=== PATIENT | male | born 1990 | race African-American/Black ===

== ENCOUNTER → 2022-05-13 09:04 | Outpatient (BNVA) | payer OTHER, SELFPAY | PROVIDERS: PCP Family Medicine; Visit Provider Physician Assistant | DX: K92.1 Melena (principal); K64.9 Unspecified hemorrhoids | CPT/HCPCS: 99202 ==

== ENCOUNTER 2022-07-23 09:34 | Outpatient (REF) | payer OTHER, SELFPAY ==
[2022-07-23 11:37] LABS: MANUAL DIFF FLAG NO
[2022-07-23 11:42] LABS: Basophils Percent Auto 0.5 % (0-2); Eosinophils Absolute Auto 0.2 X10*3/uL (0.0-0.4); Eosinophils Percent Auto 4.4 % (0-4); Hematocrit 48.1 % (42.0-52.0); Hemoglobin 15.8 g/dl (14.0-18.0); Imm Gran Abs Auto 0.02 X10*3/uL (0.00-0.03); Imm Gran Pct Auto 0.4 % (0.0-0.4); Lymphocytes Absolute Auto 1.8 X10*3/uL (1.2-4.9); Lymphocytes Percent Auto 32.5 % (20-40); Mean Corpuscular HGB Conc 32.8 g/dl (31.0-36.0); Mean Corpuscular Hemoglobin 27.4 pg (27.0-33.0); Mean Corpuscular Volume 83.4 fL (80.0-98.0); Mean Platelet Volume 9.5 fL (9.4-12.4); Monocytes Absolute Auto 0.5 X10*3/uL (0.1-1.2); Monocytes Percent Auto 8.9 % (2-11); Neutrophils Absolute Auto 2.9 x10*3/uL (2.0-8.3); Neutrophils Percent Auto 53.3 % (45-73); Platelet Count 276 X10*3/uL (160-400); Red Blood Count 5.77 X10*6/uL (4.60-5.80); Red Cell Distribution Width 13.6 % (11.0-16.0); White Blood Count 5.5 X10*3/uL (4.8-10.8)
[2022-07-23 11:47] LABS: Appearance Urine Clear; Color Urine Yellow; Glucose Urine UA >=1000 mg/dL (Negative); Leukocyte Esterase Urine Negative (Negative); Nitrite Urine Negative (Negative); PH 5.5 (5.0-9.0); Specific Gravity - Urine 1.025 (1.005-1.025); UMIC TRIGGER UA YES; Urine Blood Negative (Negative); Urine Ketones Negative (Negative); Urine Protein Negative (Neg-Trace)
[2022-07-23 11:53] LABS: Bacteria Urine None Seen (None Seen); Hyaline Casts Urine 0-2 /LPF (0-2); RBC Urine 0-2 /HPF (0-2); Squamous Epithelial Cell Urine 0-2 /HPF (0-2); WBC Urine 0-5 /HPF (0-5)
[2022-07-23 11:58] LABS: Amphetamine Screen Urine Not Detected (Not Detect); Barbiturates, Urine Not Detected (Not Detect); Benzodiazepines Screen Urine Not Detected (Not Detect); Cannabinoid Screen Urine Not Detected (Not Detect); Cocaine Screen Urine Not Detected (Not Detect); Fentanyl, urine Not Detected (Not Detect); Opiate Screen Urine Not Detected (Not Detect); Phencyclidine Screen Urine Not Detected (Not Detect)
[2022-07-23 12:37] LABS: Alanine Aminotransferase 33 U/L (0-40); Albumin Level 4.4 g/dL (3.5-5.0); Alkaline Phosphatase 105 U/L (39-117); Anion Gap 16 (12-20); Aspartate Amino Transferase 22 U/L (5-37); Bilirubin Total 0.4 mg/dL (0.0-1.0); Blood Urea Nitrogen 16 mg/dL (9-16); Carbon Dioxide 27 mmol/L (22-29); Chloride 103 mmol/L (96-108); Cholesterol 235 mg/dL; Estimated Glomerular Filt Rate > 60; Glucose Fasting 224 mg/dL (60-99); HDL Cholesterol 45 mg/dL; LDL Cholesterol Calculated 145 mg/dl; Potassium 4.9 mmol/L (3.3-5.1); Sodium 141 mmol/L (135-145); Total Protein 7.2 g/dL (6.5-8.0); Triglycerides 228 mg/dL
[2022-07-23 12:42] LABS: Creatinine Urine 142.25 mg/dL; Microalbum/Creatinine Ratio Ur 11.2 ug/mg cr
[2022-07-23 12:57] LABS: TSH reflex Free T4 1.01 uIU/mL (0.32-4.0)
== END 2022-07-23 09:35 | disposition home or self-care (01) ==
LOC: HO.WFDLDS 09:34
PROVIDERS: Visit Provider Family Medicine
DX: Z00.00 Encounter for general adult medical examination without abnormal findings (principal); R41.840 Attention and concentration deficit; I10 Essential (primary) hypertension
CPT/HCPCS: 80053; 80061; 80307; 81001; 82043; 84443; 85025

== ENCOUNTER → 2022-09-26 13:12 | Outpatient (BNVA) | payer OTHER, SELFPAY | PROVIDERS: PCP Family Medicine; Visit Provider Urology | DX: Z30.09 Encounter for other general counseling and advice on contraception (principal); E11.65 Type 2 diabetes mellitus with hyperglycemia; F41.8 Other specified anxiety disorders | CPT/HCPCS: 99202 ==

== ENCOUNTER 2022-10-22 16:01 | Outpatient (AMB) | payer OTHER, SELFPAY ==
--- NOTE | 2022-10-22 16:11 | A.OFFPC_ITS ---
Vital Signs 10/22/22 16:14 Height 5 ft 10 in Weight 249 lb BMI 35.7 BP 116/68 Blood Pressure Location Lt brachial Position Sitting Respiration 15 Pulse 113 H Pulse Source Pulse Oximeter Temp 98.9 F Temp Source Temporal Artery Scan Pulse Oximetry (%) 97 Oxygen Delivery Method Room Air Intake Visit Reasons: Physical exam Intake Note: Patient is here today for a physical and he would like to also have his medication check today as he was scheduled for 2 appointments in the same week. 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 Fairly new diagnosis of diabetes. Had started him on metformin but he states this has been giving him heartburn and has not been able to take this daily. Last A1c 07/29/22 was 7.9%. Pt states he sees his dentist every 6 months. [facility] Medical History ADHD Family History (Updated 10/22/22 @ 16:22 by Sariah Boyer) Mother Depression Social History Housing: House Patient Tobacco Use Status: Current everyday Tobacco user Tobacco use type: Cigarette Cigarettes Per Day: 5 Years Smoked: recently started e-Cigarette/Vaping Use: Never Used Second Hand Smoke Exposure: No service: No Current occupational status: employed Current occupational exposures/hazards: No Cognitive needs: No Hearing needs: No Vision needs: No Questionnaire PHQ-9 Over the last 2 weeks, how often have you been bothered by any of the following problems? 1. Little interest or pleasure in doing things: not at all 2. Feeling down, depressed, or hopeless: not at all 3. Trouble falling or staying asleep, or sleeping too much: several days 4. Feeling tired or having little energy: not at all 5. Poor appetite or overeating: not at all 6. Feeling bad about yourself - or that you are a failure or have let yourself or your family down: not at all 7. Trouble concentrating on things, such as reading the newspaper or watching television: several days 8. Moving or speaking so slowly that other people could have noticed. Or the opposite - being so fidgety or restless that you have been moving around a lot more than usual: not at all 9. Thoughts that you would be better off or of hurting yourself in some way: not at all Total score: 2 Depression Screening Interpretation: Negative 05807 - PHQ-9 Billing: Yes Source: Developed by Drs. Mayo Ivey, Mayd Crook, Naun Salas and colleagues, with an educational dyana from [employer]. Thrive Questionnaire Date Thrive assessed: 03/19/22 AYUSH-7 AMB Questionnaire AYUSH-7 Date AYUSH - 7 assessed: 10/22/22 Feeling nervous, anxious, or on edge: 1 = Several days Not being able to stop or control worryin = Not at all Worrying too much about different things: 1 = Several days Trouble relaxin = Not at all Being so restless that it is hard to sit still: 0 = Not at all Becoming easily annoyed or irritable: 0 = Not at all Feeling afraid as if something awful might happen: 0 = Not at all Total AYSUH-7 score (0-4 normal; 5-9 mild; 10-14 moderate; 15-21 severe): 2 Source: Developed by Drs. Mayo Ivey, Mady Crook, Naun Salas and colleagues, with an educational dyana from [employer]. AYUSH-7 Assessment Billing AYUSH-7 Assessment Tool: AYUSH-7 Assessment 56459 Review of Systems Const Denies chills, Denies fatigue, Denies fever(s), Denies headache(s) and Denies weakness Eyes Denies change in vision ENT Denies dizziness, Denies headache(s), Denies hearing loss, Denies nasal congestion, Denies sinus pain, Denies sinus pressure and Denies sore throat Card Denies chest pain, Denies lightheadedness, Denies dyspnea and Denies other (palpitations) Resp Denies cough, Denies dyspnea and Denies wheezing GI Denies abdominal pain, Denies melena, Denies hematochezia, Denies change in bowel habits, Denies dyspepsia and Denies nausea Denies hematuria and Denies dysuria Musc Denies abnormal gait, Denies myalgias, Denies arthralgias, Denies numbness and Denies tingling Skin/Breast Denies rash, Denies unusual bruising and Denies wounds Neuro Denies abnormal gait, Denies dizziness, Denies headache(s), Denies memory loss, Denies numbness, Denies Sensory deficit (Neuro), Denies tingling and Denies weakness Psych Denies anxiety, Denies depression and Denies memory loss Endo Denies cold intolerance, Denies fatigue, Denies heat intolerance, Denies polydipsia and Denies polyuria Grady/Lymph Denies easy bleeding and Denies easy bruising Aller/Immun Denies wheezing Physical exam (Primary Care) Vital Signs: Last Vital Signs Temp 98.9 F 10/22/22 16:14 Pulse 113 H 10/22/22 16:14 Resp 15 10/22/22 16:14 BP 116/68 10/22/22 16:14 Pulse Ox 97 10/22/22 16:14 Oxygen Delivery Method Room Air 10/22/22 16:14 BMI result Body Mass Index 35.7 Tobacco/Smoking Status: Tobacco use Status Tobacco use date assessed 10/22/22 10/22/22 16:23 Patient Tobacco Use Status Current everyday Tobacco 10/22/22 16:23 Tobacco use type Cigarette 10/22/22 16:23 e-Cigarette/Vaping Use Never Used 10/22/22 16:13 PHQ-9: PHQ-9 Score PHQ-9: Total score 2 10/22/22 16:34 Depression Screening Interpretation: Negative Thrive Assessment: Date of Thrive Assessment Date Thrive assessed 03/19/22 10/22/22 16:13 Const General: no acute distress, well developed, alert and awake Nutritional Appearance: well nourished Orientation/consciousness: patient oriented x3 HENMT Head: Yes normocephalic and Yes atraumatic Ears: hearing grossly normal bilaterally and TM's normal bilaterally General nose exam: Normal external nose present and Normal nares present Mouth: Normal oral and palatal mucosa present and moist mucous membranes Teeth and gingiva: dentition normal Throat: Yes posterior oropharynx normal Eyes General: appearance normal, both eyes and all related structures Pupils: Equal, round and reactive pupils present and Pupil accommodation reflex normal EOM: EOMs intact bilaterally Neck Neck: Yes normal visual inspection, Yes no lymphadenopathy and Yes trachea midline Thyroid: Thyroid normal Carotids: no bruits Lymphatic: no lymphadenopathy noted Chest Chest palpation & inspection: normal inspection of the chest Resp Effort & Inspection: normal respiratory effort Auscultation: clear to auscultation bilaterally Cardio Rate: regular rate and tachycardic Rhythm: regular rhythm Heart sounds: S1 normal heart sound present, S2 normal heart sound present, no gallops, no murmurs and no rubs Bruits: no abdominal aortic bruits and no carotid bruits GI Palpation (GI): No Abdominal aortic bruit present, Soft to palpation, nontender, No hepatosplenomegaly present and No Rebound tenderness present Auscultation: normal bowel sounds General: Yes no CVA tenderness Back/Spine/Pelvis Back: no CVA tenderness Cervical Spine: cervical ROM normal and No Cervical spine tenderness Thoracic/Lumbar Spine: thoraco-lumbar ROM normal, No pain with thoraco-lumbar ROM, No thoracic spinal tenderness and No lumbar spinal tenderness Skin Lesions: no lesions Rashes: no rashes Trauma: no lacerations or abrasions Wounds: no wounds Nails: normal Neuro General: patient oriented x3 Cranial nerves: Yes Equal, round and reactive pupils present Cognition (Neuro): normal cognition Gait exam (Neuro): Normal gait present Motor exam (neuro): 5/5 motor strength present throughout Sensory Exam: No Sensory deficit (Neuro) Deep tendon reflexes (DTR's): Right patellar reflex intensity grade: 2+ and Left patellar reflex intensity grade: 2+ Extrem General: Yes normal to inspection and No edema Psych Appearance: grossly normal Affect: normal affect Attitude: cooperative Thought process: Normal thought process present Assessment and Plan Assessment & Plan (1) Diabetes: Code(s): E11.9 - Type 2 diabetes mellitus without complications Plan: A1c shows poor control. Goal is less than 7.0% he is not tolerating metformin well. Taking only 250 mg every other day will add Trulicity. Continue metformin as currently taking (2) Tachycardia: Code(s): R00.0 - Tachycardia, unspecified Plan: appears dehydrated increase water intake (3) Screening for colon cancer: Code(s): Z12.11 - Encounter for screening for malignant neoplasm of colon Plan: has seen GI once. Encouraged him to call to set up colonoscopy (4) Adult general medical examination: Code(s): Z00.00 - Encounter for general adult medical examination without abnormal f indings Plan: 31-year-old male presents for an extended exam encouraged healthy diet with active lifestyle and plenty of exercise Orders: Orders Comprehensive [place]. Panel Fast Today E11.9 - Type 2 diabetes mellitus without complications, Z00.00 - Encounter for general adult medical examination without abnormal findings UA and rflx microscopic Today E11.9 - Type 2 diabetes mellitus without com plications, Z00.00 - Encounter for general adult medical examination without abnormal findings Medications: New dulaglutide (Trulicity) 0.75 mg (0.5 mL) subcut QWEEK 28 days 2 mL 1RF E11.9 - Type 2 diabetes mellitus without complications Changed From metformin 250 mg (1/2 x 500 mg) PO BID 30 days 30 tabs 2RF To metformin 250 mg (1/2 x 500 mg) PO DAILY 30 days 15 tabs 2RF Refilled Adderall XR 30 mg (dextroamphetamine-amphetamine) Name brand only. No substitutions. Dispense as written. [employer] verified. Partial refill upon request. 1 cap PO BID 28 days 56 caps 0RF NS R73.01 - Impaired fasting glucose Coding Level of Care Code Est Pt Level 4 (10179) Diagnoses Diabetes E11.9 Tachycardia R00.0 Screening for colon cancer Z12.11 Adult general medical examination Z00.00 Additional Codes AYUSH-7 Assessment Billing - AYUSH-7 Assessment Tool: AYUSH-7 Assessment 23020 ([id number])
[2022-10-22 16:14] VITALS: BP 116/68; PULSE 113; RESP 15; TEMP 37.2; O2SAT 97; BMI 35.7
== END 2022-10-22 16:50 | disposition home or self-care (01) ==
PROVIDERS: Visit Provider Family Medicine
DX: E11.9 Type 2 diabetes mellitus without complications (principal); R00.0 Tachycardia, unspecified; Z12.11 Encounter for screening for malignant neoplasm of colon; Z00.00 Encounter for general adult medical examination without abnormal findings
CPT/HCPCS: 99214

== ENCOUNTER 2022-11-17 10:19 | Outpatient (AMB) | payer OTHER, SELFPAY ==
--- NOTE | 2022-11-17 02:12 | A.OFFVIS_ITS ---
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 Accompanied by: Self / Same As Patient Allergies No Known Allergies Allergy (Verified 11/17/22 10:20) Medication List - Last Reconciled 11/17/22 by Ankur Hernandez MD Adderall XR 30 mg (dextroamphetamine-amphetamine) 1 cap PO BID 28 days NS bisacodyl (Dulcolax (bisacodyl)) 10 mg (2 x 5 mg) PO ONCE 1 day dextroamphetamine-amphetamine 10 mg 1 tab PO DAILY 28 days dulaglutide (Trulicity) 0.75 mg (0.5 mL) subcut QWEEK 28 days metformin 250 mg (1/2 x 500 mg) PO DAILY 30 days methylcellulose (laxative) (Citrucel) 500 mg PO TID omeprazole 20 mg PO DAILY 30 days polyethylene glycol 3350 (Miralax) 238 grams PO ONCE 1 day HPI HPI Comments History of Present Illness Details Jono is a 31-year-old male who presents today via Tele-health follow up on pre- op vasectomy and lab results. 11/17/2022? He was last seen by me on 09/26/2022 for vasectomy consult. He has a past medical history significant for diabetes. Evaluation review--07/29/22-- HbA1c- 7.9. 07/23/22-- Fasting glucose--224. Blood work including fasting glucose and HbA1c in 6-weeks was ordered at that time, and was advised to follow-up He states that he has been taking Trulicity for past 2-3 weeks for the diabetes with benefit. I did tell him that we will go and schedule an outpatient vasectomy. He has not repeated the blood work. I do want him to repeat his Fasting glucose and HbA1c. Review of charts: Last visit: 09/26/2022: The patient was referred by his PCP. recently diagnosed with diabetes started on metformin The patient is and states his is aware of the procedure. The patient is father of two children. 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 Co-morbidity- diabetes. Evaluation review--07/29/22-- HbA1c- 7.9. 07/23/22-- Fasting glucose--224. Vasectomy procedure was discussed at length with the patient. He was informed that vasectomy is a safe, permanent, and effective form of control but there are risks involved. It may involve risk of hematoma, procedure failure which is rare, sperm granuloma which may cause mild pain, and congestion which may cause sense of pressure and resolves after several weeks. The patient was advised that it is necessary to use other types of control methods like condom until we send semen for analysis to make sure there is no more sperm in the semen which is done after two and a half months post vasectomy. Consent regarding the vasectomy consult was obtained. Plan: Blood work including fasting glucose and HbA1c in 6-weeks was ordered. Tele-health follow-up in 7 weeks to discuss the blood work results. Pending the blood work results vasectomy discussed to be scheduled. 11/17/2022: Plan: To schedule an outpatient vasectomy. Patient will have Fasting glucose and HbA1c completed prior. [facility] Medical History ADHD Surgical History No pertinent past surgical history Family History Mother Depression Social History Housing: House Patient Tobacco Use Status: Current everyday Tobacco user Tobacco use type: Cigarette Cigarettes Per Day: 5 Years Smoked: recently started e-Cigarette/Vaping Use: Never Used Second Hand Smoke Exposure: No service: No Current occupational status: employed Current occupational exposures/hazards: No Cognitive needs: No Hearing needs: No Vision needs: No Review of Systems Const All systems reviewed & are unremarkable except as noted in HPI and below Reports no additional complaints Eyes Reports no additional complaints ENT Reports no additional complaints Card Denies dyspnea Resp Denies cough and Denies dyspnea GI Reports no additional complaints Musc Reports no additional complaints Skin/Breast Denies rash and Denies unusual bruising Neuro Reports no additional complaints Psych Reports no additional complaints Endo Reports no additional complaints Grady/Lymph Reports no additional complaints Aller/Immun Reports no additional complaints Assessment & Plan Assessment & Plan (1) Anxiety about health: Code(s): F41.8 - Other specified anxiety disorders Plan: To schedule an outpatient vasectomy. Patient will have Fasting glucose and HbA1c completed prior. (2) Vasectomy evaluation: Code(s): Z30.09 - Encounter for other general counseling and advice on contraception (3) Uncontrolled diabetes mellitus with hyperglycemia: Code(s): E11.65 - Type 2 diabetes mellitus with hyperglycemia Patient Instructions: The patient had an opportunity to ask questions regarding treatment plan. All questions were answered. Imaging, Laboratory studies and physical exam results were discussed and reviewed in detail. No major barriers to understanding were identified. The patient expressed understanding and agreement with the above treatment plan.? ? ? The patient is aware they should contact our office by phone for worsening of their current condition or the appearance of new symptoms. Compliance is encouraged with any medications and followup testing that is ordered.? ? ? It is a privilege to be allowed the opportunity to participate in the urologic care of your patient. If you have any questions or concerns regarding treatment for the above conditions please do not hesitate to contact me. The office telephone contact is [phone].? ? ? This note is constructed in part using voice recognition software. While every effort has been made to ensure accuracy distillery supervisor errors may have been included.? ? ? Yours sincerely,? ? ? Ankur Hernandez MD? Telehealth Telehealth Location of provider rendering services: practice address Location of patient: address on file Patient Identification confirmed using: Name, : Yes Telehealth method: voice only Patient verbally consented to treatment: Yes Patient verbally consented to billing insurance company: Yes Patient informed of any privacy concerns related to visit: Yes Minutes spent on Phone/Video with Pt.: 15 Coding Level of Care Code Tele Est Pt Level 3 (15117) Diagnoses Anxiety about health F41.8 Vasectomy evaluation Z30.09 Uncontrolled diabetes mellitus with hyperglycemia E11.65
== END 2022-11-17 14:50 | disposition home or self-care (01) ==
LOC: HO.HUSH 10:19
PROVIDERS: PCP Family Medicine; Visit Provider Urology
DX: F41.8 Other specified anxiety disorders (principal); Z30.09 Encounter for other general counseling and advice on contraception; E11.65 Type 2 diabetes mellitus with hyperglycemia
CPT/HCPCS: 99213

== ENCOUNTER → 2022-11-17 10:19 | Outpatient (BNVA) | payer OTHER, SELFPAY | PROVIDERS: PCP Family Medicine; Visit Provider Urology ==

== ENCOUNTER 2022-11-26 16:30 | Outpatient (AMB) | payer OTHER, SELFPAY ==
--- NOTE | 2022-11-26 16:32 | MHC.PC.OV ---
Vital Signs 11/26/22 16:34 Height 5 ft 10 in Weight 252 lb BMI 36.2 BP 118/70 Position Sitting Pulse 123 H Pulse Source Pulse Oximeter Pulse Oximetry (%) 97 Oxygen Delivery Method Room Air Intake Visit Reasons: f/u diabetes Intake Note: Patient is here to follow up on diabetes. Allergies No Known Allergies Allergy (Verified 11/26/22 16:36) Tobacco use date assessed: 11/26/22 Dental Screening Dental Screen Date: 11/26/22 Did you have a dental visit in the last 12 months?: Yes Did you have a dental problem in the last 6 months where you did not have access to dental care?: No Was dental information given to patient?: Patient has dentist HPI f/u diabetes HPI Details 31 y.o male presents to f/u diabetes. Had started him Trulicity and continued metformin at 250mg every other day as he had been having trouble tolerating this more frequently. He reports he is not on metformin at all as it had been causing him heartburn. A1c 07/29/22 7.9% and last A1c 10/22/22 was 7.7%. Blood pressure today 118/70, 123p. PFSH Medical History ADHD Surgical History No pertinent past surgical history Family History Mother Depression Social History Housing: House Patient Tobacco Use Status: Current everyday Tobacco user Tobacco use type: Cigarette Cigarettes Per Day: 2 Years Smoked: recently started e-Cigarette/Vaping Use: Never Used Second Hand Smoke Exposure: No service: No Current occupational status: employed Current occupational exposures/hazards: No Cognitive needs: No Hearing needs: No Vision needs: No Questionnaire Thrive Questionnaire Date Thrive assessed: 03/19/22 AYUSH-7 AMB Questionnaire AYUSH-7 Date AYUSH - 7 assessed: 10/22/22 Source: Developed by Drs. Mayo Ivey, Mady Crook, Naun Salas and colleagues, with an educational dyana from [employer]. Physical exam (Primary Care) Vital Signs: Last Vital Signs Pulse 123 H 11/26/22 16:34 BP 118/70 11/26/22 16:34 Pulse Ox 97 11/26/22 16:34 Oxygen Delivery Method Room Air 11/26/22 16:34 BMI result Body Mass Index 36.2 Tobacco/Smoking Status: Tobacco use Status Tobacco use date assessed 11/26/22 11/26/22 16:39 Patient Tobacco Use Status Current everyday Tobacco 11/26/22 16:33 Tobacco use type Cigarette 11/26/22 16:33 e-Cigarette/Vaping Use Never Used 11/26/22 16:33 Thrive Assessment: Date of Thrive Assessment Date Thrive assessed 03/19/22 11/26/22 16:33 Assessment and Plan Assessment & Plan (1) Diabetes: Code(s): E11.9 - Type 2 diabetes mellitus without complications Plan: A1c was high at last check and he was not tolerating metformin. Started him on Trulicity and we discussed having him take metformin every other day. He has not been able to tolerate any metformin so discontinued this already. Will increase Trulicity which he is tolerating well. Will follow-up with an A1c at the end of December (2) Tachycardia: Code(s): R00.0 - Tachycardia, unspecified Plan: Ongoing tachycardia Hydrate well and eat regular meals-particularly with his Adderall medication Will refer to Cardiology Orders: Referrals Cardiology Referral R00.0 - Tachycardia, unspecified Medications: Changed From dulaglutide (Trulicity) 0.75 mg (0.5 mL) subcut QWEEK 28 days 2 mL 1RF E11.9 - Type 2 diabetes mellitus without complications To dulaglutide 1.5 mg (0.5 mL) subcut QWEEK 28 days 2 mL 1RF E11.9 - Type 2 diabetes mellitus without complications Coding Level of Care Code Est Pt Level 3 (37896) Diagnoses Diabetes E11.9 Tachycardia R00.0
[2022-11-26 16:34] VITALS: BP 118/70; PULSE 123; O2SAT 97; BMI 36.2
== END 2022-11-26 17:19 | disposition home or self-care (01) ==
PROVIDERS: PCP Family Medicine; Visit Provider Family Medicine
DX: E11.9 Type 2 diabetes mellitus without complications (principal); R00.0 Tachycardia, unspecified
CPT/HCPCS: 99213

== ENCOUNTER 2023-02-04 16:35 | Outpatient (AMB) | payer OTHER, SELFPAY ==
--- NOTE | 2023-02-04 16:38 | A.OFFPC_ITS ---
Vital Signs 02/04/23 16:39 Height 5 ft 10 in Weight 251 lb 6 oz BMI 36.1 BP 120/70 Blood Pressure Location Rt brachial Position Sitting Pulse 110 H Pulse Source Pulse Oximeter Pulse Oximetry (%) 97 Oxygen Delivery Method Room Air Intake Visit Reasons: f/u diabetes Intake Note: Patient is here to follow up on diabetes, patient would like refill of Adderall today. Allergies No Known Allergies Allergy (Verified 02/04/23 16:41) Tobacco use date assessed: 11/26/22 HPI f/u diabetes HPI Details 32 y/o male presents to f/u diabetes. Had started him on Trulicity and continued metformin at 250mg every other day as he had been having trouble tolerating this more frequently. Last A1c 10/22/22 was 7.7%. A1c today 02/04/23 is 6.3%. He continues to work on a diabetic diet along with exercise. He gets a diabetic eye exam once a year. Ongoing tachycardia and pt does have an appt. with Cardiology in March. HPI Comments History of Present Illness Details Documentation assistance for Jose Tyler MD, was provided by Boyd Rubin,?Outside Solar Sales Consultant on 02/04/2023 5:04 PM EST. I, Dr. Tyler, have read, observed, and verified documentation.? PFSH Medical History ADHD Surgical History No pertinent past surgical history Family History Mother Depression Social History Housing: House Patient Tobacco Use Status: Current everyday Tobacco user Tobacco use type: Cigarette Cigarettes Per Day: 2 Years Smoked: recently started e-Cigarette/Vaping Use: Never Used Second Hand Smoke Exposure: No service: No Current occupational status: employed Current occupational exposures/hazards: No Cognitive needs: No Hearing needs: No Vision needs: No Questionnaire Thrive Questionnaire Date Thrive assessed: 03/19/22 AYUSH-7 AMB Questionnaire AYUSH-7 Date AYUSH - 7 assessed: 10/22/22 Source: Developed by Drs. Mayo L. Mady Ivey, Naun Salas and colleagues, with an educational dyana from [employer]. Review of Systems Const Denies chills, Denies fatigue, Denies fever(s), Denies headache(s) and Denies weakness ENT Denies dizziness and Denies headache(s) Card Denies dyspnea Resp Denies cough, Denies dyspnea, Denies wheezing and Denies other (shortness of breath) Musc Denies numbness and Denies tingling Neuro Denies dizziness, Denies headache(s), Denies numbness, Denies tingling and Denies weakness Psych Denies anxiety and Denies depression Endo Denies fatigue Aller/Immun Denies wheezing Physical exam (Primary Care) Vital Signs: Last Vital Signs Pulse 110 H 02/04/23 16:39 BP 120/70 02/04/23 16:39 Pulse Ox 97 02/04/23 16:39 Oxygen Delivery Method Room Air 02/04/23 16:39 BMI result Body Mass Index 36.1 Tobacco/Smoking Status: Tobacco use Status Tobacco use date assessed 11/26/22 02/04/23 16:40 Patient Tobacco Use Status Current everyday Tobacco 02/04/23 16:40 Tobacco use type Cigarette 02/04/23 16:40 e-Cigarette/Vaping Use Never Used 02/04/23 16:40 Thrive Assessment: Date of Thrive Assessment Date Thrive assessed 03/19/22 02/04/23 16:40 Const General: well developed; No acute distress Nutritional Appearance: well nourished Orientation/consciousness: patient oriented x3 HENMT Head: Yes normocephalic and Yes atraumatic Eyes General: appearance normal, both eyes and all related structures Pupils: Equal, round and reactive pupils present EOM: EOMs intact bilaterally Resp Effort & Inspection: normal respiratory effort Auscultation: clear to auscultation bilaterally Cardio Rate: tachycardic Rhythm: regular rhythm Heart sounds: S1 normal heart sound present, S2 normal heart sound present, no gallops, no murmurs and no rubs Neuro General: patient oriented x3 and gait normal Cranial nerves: Yes Equal, round and reactive pupils present Psych Affect: normal affect Results AMB Hemoglobin A1c AMB Hemoglobin A1c 6.3 % Last Edit by Nahed Smith CMA on 02/04/23 17:04 Results Reviewed Results Reviewed: Laboratory Last Values Hgb A1c (Clinic) 6.3 % (4.0-6.0) H 02/04/23 16:51 Assessment and Plan Assessment & Plan (1) Diabetes: Code(s): E11.9 - Type 2 diabetes mellitus without complications Plan: A1c?now?6.3%.??Good?control.??Goal?is?less?than?7.0% Continue?Trulicity?as?prescribed Continue?diabetic?diet Recent?eye?exam.??Up-to-date. (2) ADHD: Code(s): F90.9 - Attention-deficit hyperactivity disorder, unspecified type Plan: Controlled. He?will?follow-up?in?3?months Patient?does?have?tachycardia?and?has?an?upcoming?appointment?with?cardiology. (3) Tachycardia: Code(s): R00.0 - Tachycardia, unspecified Plan: As?above, patient?has?tachycardia?and?has?an?appointment?with?cardiology. May?be?partly?due?to?his?medication?for?ADHD Advised?good?hydration Will?follow Orders: Orders AMB Hemoglobin A1c Today Z13.9 - Encounter for screening, unspecified Medications: Refilled Adderall XR 30 mg (dextroamphetamine-amphetamine) Name brand only. No substitutions. Dispense as written. MassPat verified. Partial refill upon request. 1 cap PO BID 56 caps 0RF 28 days NS R73.01 - Impaired fasting glucose dextroamphetamine-amphetamine 10 mg MassPat verified. Partial refill upon request. 1 tab PO DAILY 28 tabs 0RF 28 days R73.01 - Impaired fasting glucose dulaglutide 1.5 mg (0.5 mL) subcut QWEEK 2 mL 1RF 28 days E11.9 - Type 2 diabetes mellitus without complications bisacodyl (Dulcolax (bisacodyl)) Take 2 tablets by mouth at 12:00pm the day before your procedure. 10 mg (2 x 5 mg) PO ONCE 2 tabs 0RF colonoscopy prep 1 day Z12.11 - Encounter for screening for malignant neoplasm of colon omeprazole 20 mg PO DAILY 30 caps 3RF 30 days Coding Level of Care Code Est Pt Level 3 (25887) Diagnoses Diabetes E11.9 ADHD F90.9 Tachycardia R00.0
[2023-02-04 16:39] VITALS: BP 120/70; PULSE 110; O2SAT 97; BMI 36.1
== END 2023-02-04 17:11 | disposition home or self-care (01) ==
PROVIDERS: PCP Family Medicine; Visit Provider Family Medicine
DX: E11.9 Type 2 diabetes mellitus without complications (principal); F90.9 Attention-deficit hyperactivity disorder, unspecified type; R00.0 Tachycardia, unspecified
CPT/HCPCS: 83036; 99213

== ENCOUNTER 2023-07-30 09:31 | Outpatient (AMB) | payer OTHER, SELFPAY ==
[2023-07-30 09:35] VITALS: BP 108/76; PULSE 100; RESP 13; TEMP 36.4; O2SAT 98; BMI 35.3
--- NOTE | 2023-07-30 09:35 | A.OFFPC_ITS ---
Vital Signs 07/30/23 09:35 Height 5 ft 10 in Weight 246 lb 2 oz BMI 35.3 BP 108/76 Blood Pressure Location Rt brachial Position Sitting Respiration 13 Pulse 100 Pulse Source Pulse Oximeter Temp 97.5 F Temp Source Temporal Artery Scan Pulse Oximetry (%) 98 Oxygen Delivery Method Room Air Intake Visit Reasons: follow-up diabetes, ADHD and tachycardia Intake Note: patient does not have any concerns as of right now. 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 Accompanied by: Self / Same As Patient Allergies apples Allergy (Intermediate, Uncoded 07/30/23 09:44) Sore throat Medication List - Last Reconciled 07/30/23 by Jose Tyler MD Adderall XR 30 mg (dextroamphetamine-amphetamine) 1 cap PO BID 28 days NS bisacodyl (Dulcolax (bisacodyl)) 10 mg (2 x 5 mg) PO ONCE 1 day dextroamphetamine-amphetamine 10 mg 1 tab PO DAILY 28 days dulaglutide 1.5 mg (0.5 mL) subcut QWEEK 28 days methylcellulose (laxative) (Citrucel) 500 mg PO TID omeprazole 20 mg PO DAILY 30 days polyethylene glycol 3350 (Miralax) 238 grams PO ONCE 1 day Tobacco use date assessed: 07/30/23 Dental Screening Dental Screen Date: 07/30/23 Did you have a dental visit in the last 12 months?: No Did you have a dental problem in the last 6 months where you did not have access to dental care?: No Was dental information given to patient?: Patient has dentist HPI follow-up diabetes, ADHD and tachycardia HPI Details 32 y/o male presents to f/u diabetes, AD HD and tachycardia. Denies any issues with anxiety, sleep problems, appetite problems on his current ADHD meds. Had been off his Trulicity. Had just started this again and has been taking it once a week. Pt requests some [facility] Medical History ADHD Surgical History No pertinent past surgical history Family History Mother Depression Social History Household Members: Family Both parents involved: No Caregiver staying overnight: No Housing: House Are you a primary personal care aide to a significant other at home: No Do you presently have visiting nurse or other home services: No 75 years or older and lives alone: No Patient Tobacco Use Status: Current everyday Tobacco user Tobacco use type: Cigarette Cigarettes Per Day: 1 Years Smoked: recently started e-Cigarette/Vaping Use: Never Used Second Hand Smoke Exposure: No service: No Current occupational status: employed Current occupation: Self Employed Current occupational exposures/hazards: No Cognitive needs: No Hearing needs: No Vision needs: Yes Questionnaire PHQ-9 Over the last 2 weeks, how often have you been bothered by any of the following problems? 1. Little interest or pleasure in doing things: not at all 2. Feeling down, depressed, or hopeless: not at all 3. Trouble falling or staying asleep, or sleeping too much: several days 4. Feeling tired or having little energy: not at all 5. Poor appetite or overeating: several days 6. Feeling bad about yourself - or that you are a failure or have let yourself or your family down: not at all 7. Trouble concentrating on things, such as reading the newspaper or watching television: several days 8. Moving or speaking so slowly that other people could have noticed. Or the opposite - being so fidgety or restless that you have been moving around a lot more than usual: more than half the days 9. Thoughts that you would be better off or of hurting yourself in some way: not at all Total score: 5 Depression Screening Interpretation: Negative Depression Screening Done: Yes 91281 - PHQ-9 Billing: Yes Source: Developed by Drs. Mayo Ivey, Mady Crook, Naun Salas and colleagues, with an educational dyana from [employer]. Thrive Questionnaire Date Thrive assessed: 03/19/22 AYUSH-7 AMB Questionnaire AYUSH-7 Date AYUSH - 7 assessed: 07/30/23 Feeling nervous, anxious, or on edge: 1 = Several days Not being able to stop or control worryin = Not at all Worrying too much about different things: 0 = Not at all Trouble relaxin = Several days Being so restless that it is hard to sit still: 2 = More than half the days Becoming easily annoyed or irritable: 1 = Several days Feeling afraid as if something awful might happen: 0 = Not at all Total AYUSH-7 score (0-4 normal; 5-9 mild; 10-14 moderate; 15-21 severe): 5 Source: Developed by Drs. Mayo Ivey, Mady Crook, Naun Salas and colleagues, with an educational dyana from [employer]. AYUSH-7 Assessment Billing AYUSH-7 Assessment Tool: AYUSH-7 Assessment 84087 Review of Systems Const Denies chills, Denies fatigue, Denies fever(s), Denies headache(s) and Denies weakness ENT Denies dizziness and Denies headache(s) Card Denies chest pain, Denies lightheadedness, Denies dyspnea and Denies other (Palpitations) Resp Denies cough, Denies dyspnea, Denies wheezing and Denies other ( shortness of breath) Musc Denies numbness and Denies tingling Neuro Denies dizziness, Denies headache(s), Denies numbness, Denies tingling, Denies paresthesias and Denies weakness Psych Denies anxiety and Denies depression Endo Denies fatigue Aller/Immun Denies wheezing Physical exam (Primary Care) Vital Signs: Last Vital Signs Temp 97.5 F 07/30/23 09:35 Pulse 100 07/30/23 09:35 Resp 13 07/30/23 09:35 BP 108/76 07/30/23 09:35 Pulse Ox 98 07/30/23 09:35 Oxygen Delivery Method Room Air 07/30/23 09:35 BMI result Body Mass Index 35.3 Tobacco/Smoking Status: Tobacco use Status Tobacco use date assessed 07/30/23 07/30/23 09:47 Patient Tobacco Use Status Current everyday Tobacco 07/30/23 09:45 Tobacco use type Cigarette 07/30/23 09:45 e-Cigarette/Vaping Use Never Used 07/30/23 09:45 PHQ-9: PHQ-9 Score PHQ-9: Total score 5 07/30/23 09:47 Depression Screening Interpretation: Negative Thrive Assessment: Date of Thrive Assessment Date Thrive assessed 03/19/22 07/30/23 09:41 Const General: no acute distress and well developed Nutritional Appearance: well nourished Orientation/consciousness: patient oriented x3 [facility] Head: Yes normocephalic and Yes atraumatic Eyes General: appearance normal, both eyes and all related structures Pupils: Equal, round and reactive pupils present EOM: EOMs intact bilaterally Resp Effort & Inspection: normal respiratory effort Auscultation: clear to auscultation bilaterally Cardio Rate: regular rate Rhythm: regular rhythm Heart sounds: S1 normal heart sound present, S2 normal heart sound present, no gallops, no murmurs and no rubs Neuro General: patient oriented x3 and gait normal Cranial nerves: Yes Equal, round and reactive pupils present Psych Affect: normal affect Results AMB Hemoglobin A1c AMB Hemoglobin A1c 8.4 % Last Edit by JENNIFER James on 07/30/23 09:5 0 Results Reviewed Results Reviewed: Laboratory Last Values Hgb A1c (Clinic) 8.4 % (4.0-6.0) H 07/30/23 09:49 Assessment and Plan Assessment & Plan (1) Diabetes: Code(s): E11.9 - Type 2 diabetes mellitus without complications Plan: A1c?climbed?to ?8.4%?because?he?was?out?of?his?Trulicity?and?did?not?pick?it?up?again?x3?months He?has?gotten?his?Trulicity?again?and?resumed?it. Continue?Trulicity?and?we?will?follow-up?on?this?in?about?4?months. (2) ADHD: Code(s): F90.9 - Attention-deficit hyperactivity disorder, unspecified type Plan: Medication?regimen?is?efficacious?and?he?has?no?adverse?effects?such?as?anxiety, ?difficulty?sleeping?or?appetite?suppression. Continue?current?medication?regimen (3) Family planning: Code(s): Z30.09 - Encounter for other general counseling and advice on contraception Plan: Patient?had?be en?referred?to?Urology?for?consult?for?vasectomy?but?he?did?not?follow?through?w ith?this. He?would?like?a?new?referral?which?I?have?given?him?today?along?with?phone?numbe r?so?he?can?call?them. Orders: Orders Hepatitis B,C Profile Today Z11.3 - Encounter for screening for infections with a predominantly sexual mode of transmission HIV Ab/Ag Today Z11.3 - Encounter for screening for infections with a predominantly sexual mode of transmission UA and rflx microscopic Today Z00.00 - Encounter for general adult medical examination without abnormal findings AMB Hemoglobin A1c Today E11.9 - Type [address] NG by PCR Today Z11.3 - Encounter for screening for infections with a predominantly sexual mode of transmission Syphilis Screen Today Z11.3 - Encounter for screening for infections with a predominantly sexual mode of transmission Referrals Urology Referral Z30.09 - Encounter for other general counseling and advice on contraception Coding Level of Care Code Est Pt Level 4 (01160) Diagnoses Diabetes E11.9 ADHD F90.9 Family planning Z30.09 Additional Codes AYUSH-7 Assessment Billing - AYUSH-7 Assessment Tool: AYUSH-7 Assessment 65510 ([id number])
== END 2023-07-30 10:43 | disposition home or self-care (01) ==
PROVIDERS: PCP Family Medicine; Visit Provider Family Medicine
DX: E11.9 Type 2 diabetes mellitus without complications (principal); F90.9 Attention-deficit hyperactivity disorder, unspecified type; Z30.09 Encounter for other general counseling and advice on contraception
CPT/HCPCS: 83036; 99214

== ENCOUNTER 2023-07-30 10:22 | Outpatient (REF) | payer OTHER, SELFPAY ==
[2023-07-30 11:32] LABS: Appearance Urine Clear; Color Urine Yellow; Glucose Urine UA >=1000 mg/dL (Negative); Leukocyte Esterase Urine Negative (Negative); Nitrite Urine Negative (Negative); PH 5.5 (5.0-9.0); Specific Gravity - Urine >= 1.030 (1.005-1.025); UMIC TRIGGER UA YES; Urine Blood Negative (Negative); Urine Ketones Negative (Negative); Urine Protein Negative (Neg-Trace)
[2023-07-30 11:54] LABS: Bacteria Urine None Seen (None Seen); Hyaline Casts Urine 0-2 /LPF (0-2); RBC Urine 0-2 /HPF (0-2); Squamous Epithelial Cell Urine 0-2 /HPF (0-2)
[2023-07-30 12:37] LABS: HBS Num1 0.24 mIU/mL (0-7.99); HBc Num1 0.22 S/CO (0.00-0.79); HBsAGNum1 0.32 S/CO (0.00-0.99); HIV AB/AG Nonreactive (Nonreactive); HIV Num 1 0.04 S/CO (0.00-0.99); Hepatitis B Core Antibody Nonreactive (Nonreactive); Hepatitis B Surface Antigen Negative (Negative); ~HepC Num1 0.11 S/CO (0.00-0.79); ~Hepatitis B Surface Antibody NONREACTIVE (Nonreactive); ~Hepatitis C Antibody Nonreactive (Nonreactive)
[2023-07-30 12:38] LABS: Syphilis Screen Nonreactive (Nonreactive)
== END 2023-07-30 10:23 | disposition home or self-care (01) ==
LOC: HO.WFDLDS 10:22
PROVIDERS: Visit Provider Family Medicine
DX: Z11.3 Encounter for screening for infections with a predominantly sexual mode of transmission (principal); Z11.4 Encounter for screening for human immunodeficiency virus [HIV]
CPT/HCPCS: 36415; 81001; 86704; 86706; 86780; 86803; 87340; 87389

== ENCOUNTER 2023-11-10 11:15 | Outpatient (AMB) | payer OTHER, SELFPAY ==
[2023-11-10 11:26] VITALS: BP 132/86; PULSE 88; RESP 12; TEMP 36.7; O2SAT 98; BMI 34.9
--- NOTE | 2023-11-10 11:26 | MHC.PC.OV ---
Vital Signs 11/10/23 11:26 Height 5 ft 10 in Weight 243 lb BMI 34.9 BP 132/86 Blood Pressure Location Lt brachial Position Sitting Respiration 12 Pulse 88 Pulse Source Pulse Oximeter Temp 98.1 F Temp Source Temporal Artery Scan Pulse Oximetry (%) 98 Oxygen Delivery Method Room Air Intake Visit Reasons: CRICKET FROM [facility] Intake Note: Patient is here to transfer care from Dr. Tyler to Dr. Eubanks. Patient reports no concerns at this time. 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 Internal transfer. Type 2 diabetes: On trulicity 1.5mg weekly. Has been having issues getting refills of the medication sent and refilled due to shortage so has missed many doses in the past few months ADHD: currently on combination of XR and short acting adderall. Has been having trouble getting refills sent and feels weird going off and on the medication. Would like to try Focalin ROS CONSTITUTIONAL: Denies weight loss, fever and chills. HEENT: Denies changes in vision and hearing. RESPIRATORY: Denies SOB and cough. CV: Denies palpitations and CP GI: Denies abdominal pain, nausea, vomiting and diarrhea. : Denies dysuria and urinary frequency. MSK: Denies new myalgia and joint pain. SKIN: Denies rash and pruritus. NEUROLOGICAL: Denies headache PSYCHIATRIC: Denies recent changes in mood. PHYSICAL EXAM: GENERAL: Alert and oriented x 3. NAD EYES: EOMI. Anicteric. HENT: Moist mucous membranes. No scleral icterus. No cervical lymphadenopathy. LUNGS: Clear to auscultation bilaterally. CARDIOVASCULAR: Regular rate and rhythm. No murmur. No JVD. ABDOMEN: Soft, non-tender +bs EXTREMITIES: No edema. Non-tender. SKIN: No rashes or lesions. Warm. NEUROLOGIC: No focal neurological deficits. CN II-XII grossly intact PSYCHIATRIC: Cooperative. Appropriate mood and affect [facility] Medical History ADHD Surgical History No pertinent past surgical history Family History Mother Depression Social History Household Members: Family Both parents involved: No Caregiver staying overnight: No Housing: House Are you a primary assistant child care teacher to a significant other at home: No Do you presently have visiting nurse or other home services: No 75 years or older and lives alone: No Patient Tobacco Use Status: Current everyday Tobacco user Tobacco use type: Cigarette Cigarettes Per Day: 1 Years Smoked: recently started e-Cigarette/Vaping Use: Never Used Second Hand Smoke Exposure: No service: No Current occupational status: employed Current occupation: Self Employed Current occupational exposures/hazards: No Cognitive needs: No Hearing needs: No Vision needs: Yes Questionnaire Thrive Questionnaire Date Thrive assessed: 03/19/22 AYUSH-7 AMB Questionnaire AYUSH-7 Date AYUSH - 7 assessed: 07/30/23 Source: Developed by Drs. Mayo Ivey, Mady Crook, Naun Salas and colleagues, with an educational dyana from [employer]. Physical exam (Primary Care) Vital Signs: Last Vital Signs Temp 98.1 F 11/10/23 11:26 Pulse 88 11/10/23 11:26 Resp 12 11/10/23 11:26 BP 132/86 11/10/23 11:26 Pulse Ox 98 11/10/23 11:26 Oxygen Delivery Method Room Air 11/10/23 11:26 BMI result Body Mass Index 34.9 Tobacco/Smoking Status: Tobacco use Status Tobacco use date assessed 07/30/23 11/10/23 11:32 Patient Tobacco Use Status Current everyday Tobacco 11/10/23 11:32 Tobacco use type Cigarette 11/10/23 11:32 e-Cigarette/Vaping Use Never Used 11/10/23 11:32 Thrive Assessment: Date of Thrive Assessment Date Thrive assessed 03/19/22 11/10/23 11:32 Results AMB Hemoglobin A1c AMB Hemoglobin A1c 7.6 % Last Edit by Sariah Boyer CMA on 11/10/23 11:44 Results Reviewed Results Reviewed: Laboratory Last Values Hgb A1c (Clinic) 7.6 % (4.0-6.0) H 11/10/23 11:33 Assessment and Plan Assessment & Plan (1) Diabetes: Code(s): E11.9 - Type 2 diabetes mellitus without complications Qualifiers: Diabetes mellitus complication status: with hyperglycemia Diabetes mellitus intermediate accountant insulin use: without intermediate accountant use Diabetes mellitus type: type 2 Qualified Code(s): E11.65 - Type 2 diabetes mellitus with hyperglycemia Plan: Continue trulicity. Check A1C If trulicity shortage continues consider switch to mounjaro or ozempic Labs ordered (2) ADHD: Code(s): F90.9 - Attention-deficit hyperactivity disorder, unspecified type Qualifiers: Attention deficit-hyperactivity disorder type: predominantly inattentive Qualified Code(s): F90.0 - Attention-deficit hyperactivity disorder, predominantly inattentive type Plan: Trial switch to focalin Orders: Orders Complete Blood Count Auto Diff 3 Months E78.00 - Pure hypercholesterolemia, unspecified, E11.9 - Type 2 diabetes mellitus without complications, F90.9 - Attention-deficit hyperactivity disorder, unspecified type, R73.01 - Impaired fasting glucose AMB Hemoglobin A1c 11/10/23 E11.9 - Type 2 diabetes mellitus without complications Comprehensive Met. Panel 3 Months E78.00 - Pure hypercholesterolemia, unspecified, E11.9 - Type 2 diabetes mellitus without complications, F90.9 - Attention-deficit hyperactivity disorder, unspecified type, R73.01 - Impaired fasting glucose Lipid Panel 3 Months E78.00 - Pure hypercholesterolemia, unspecified, E11.9 - Type 2 diabetes mellitus without complications, F90.9 - Attention-deficit hyperactivity disorder, unspecified type, R73.01 - Impaired fasting glucose Hemoglobin A1c 3 Months E78.00 - Pure hypercholesterolemia, unspecified, E11.9 - Type 2 diabetes mellitus without complications, F90.9 - Attention-deficit hyperactivity disorder, unspecified type, R73.01 - Impaired fasting glucose Medications: New dexmethylphenidate ER (Focalin XR) Partial Fill upon patient request. 40 mg PO DAILY 60 caps 0RF F90.9 - Attention-deficit hyperactivity disorder, unspecified type Changed From dulaglutide 1.5 mg (0.5 mL) subcut QWEEK 28 days 2 mL 1RF E11.9 - Type 2 diabetes mellitus without complications To dulaglutide 1.5 mg (0.5 mL) subcut QWEEK 6 mL 1RF 84 days E11.9 - Type 2 diabetes mellitus without complications Refilled dulaglutide 1.5 mg (0.5 mL) subcut QWEEK 2 mL 1RF 28 days E11.9 - Type 2 diabetes mellitus without complications Coding Level of Care Code Est Pt Level 5 (32224) Diagnoses Type 2 diabetes mellitus with hyperglycemia, without long-term current use of insulin E11.65 Diabetes mellitus complication status: with hyperglycemia Diabetes mellitus intermediate accountant insulin use: without intermediate accountant use Diabetes mellitus type: type 2 Attention deficit hyperactivity disorder (ADHD), predominantly inattentive type F90.0 Attention deficit-hyperactivity disorder type: predominantly inattentive
== END 2023-11-10 12:22 | disposition home or self-care (01) ==
PROVIDERS: PCP Family Medicine; Visit Provider Internal Medicine
DX: E11.65 Type 2 diabetes mellitus with hyperglycemia (principal); F90.0 Attention-deficit hyperactivity disorder, predominantly inattentive type
CPT/HCPCS: 83036; 99214

== ENCOUNTER 2024-04-08 08:50 | Outpatient (AMB) | payer OTHER, SELFPAY ==
--- NOTE | 2024-04-08 09:26 | A.OFFPC_ITS ---
Vital Signs 04/08/24 09:28 Height 5 ft 10 in BP 110/78 Blood Pressure Location Lt brachial Position Sitting Pulse 78 Pulse Source Pulse Oximeter Pulse Oximetry (%) 98 Oxygen Delivery Method Room Air Intake Visit Reasons: 3 month DM Intake Note: Three month follow up diabetes Iron Worker Required: No Allergies apples Allergy (Intermediate, Uncoded 04/08/24 09:26) Sore throat Tobacco use date assessed: 04/08/24 Dental Screening Dental Screen Date: 07/30/23 HPI HPI Comments History of Present Illness Details The patient is a 33 year old male with a past medical history of type 2 diabetes, ADHD presenting for follow up Type 2 diabetes: On trulicity 1.5mg weekly. A1C is 6.7%. Has gained some weight over the holidays. Doing well on the medication ADHD: On Focalin. There has been shortages of the medication and as of the new year a PA is required for the medication. He would like to try wellbutrin in addition to the Focalin especially because he has to go days with the latter. Previously was on a combination of XR and short acting adderall. ROS CONSTITUTIONAL: Denies weight loss, fever and chills. HEENT: Denies changes in vision and hearing. RESPIRATORY: Denies SOB and cough. CV: Denies palpitations and CP GI: Denies abdominal pain, nausea, vomiting and diarrhea. : Denies dysuria and urinary frequency. MSK: Denies new myalgia and joint pain. SKIN: Denies rash and pruritus. NEUROLOGICAL: Denies headache PSYCHIATRIC: Denies recent changes in mood. PHYSICAL EXAM: GENERAL: Alert and oriented x 3. NAD EYES: EOMI. Anicteric. HENT: Moist mucous membranes. No scleral icterus. No cervical lymphadenopathy. LUNGS: Clear to auscultation bilaterally. CARDIOVASCULAR: Regular rate and rhythm. No murmur. No JVD. ABDOMEN: Soft, non-tender +bs EXTREMITIES: No edema. Non-tender. SKIN: No rashes or lesions. Warm. NEUROLOGIC: No focal neurological deficits. CN II-XII grossly intact PSYCHIATRIC: Cooperative. Appropriate mood and affect [facility] Medical History ADHD Surgical History No pertinent past surgical history Family History (Updated 04/08/24 @ 10:00 by Sarai Berger CMA) Mother Depression Other FH: mental illness Social History (Updated 04/08/24 @ 10:00 by Sarai Beregr CMA) Household Members: Family Both parents involved: No Caregiver staying overnight: No Housing: House Are you a primary daycare director to a significant other at home: No Do you presently have visiting nurse or other home services: No 75 years or older and lives alone: No Alcohol intake: current Patient Tobacco Use Status: Current everyday Tobacco user Tobacco use type: Cigarette Cigarettes Per Day: 1 Years Smoked: recently started e-Cigarette/Vaping Use: Never Used Second Hand Smoke Exposure: No service: No Current occupational status: employed Current occupation: Self Employed Current occupational exposures/hazards: No Cognitive needs: No Hearing needs: No Vision needs: Yes Questionnaire PHQ-9 Over the last 2 weeks, how often have you been bothered by any of the following problems? 1. Little interest or pleasure in doing things: several days 2. Feeling down, depressed, or hopeless: several days 3. Trouble falling or staying asleep, or sleeping too much: not at all 4. Feeling tired or having little energy: several days 5. Poor appetite or overeating: several days 6. Feeling bad about yourself - or that you are a failure or have let yourself or your family down: several days 7. Trouble concentrating on things, such as reading the newspaper or watching television: more than half the days 8. Moving or speaking so slowly that other people could have noticed. Or the opposite - being so fidgety or restless that you have been moving around a lot more than usual: not at all 9. Thoughts that you would be better off or of hurting yourself in some way: not at all Total score: 7 Depression Screening Interpretation: Positive Depression Screening Follow-up: New Medication prescribed Depression Screening Done: Yes 81024 - PHQ-9 Billing: Yes Source: Developed by Drs. Mayo Ivey, Mady Crook, Naun Salas and colleagues, with an educational dyana from [employer]. Thrive Questionnaire Date Thrive assessed: 03/19/22 I am a: Patient What is your living situation today?: I have a steady place to live Within the past 12 months, did the food you bought not last and you didn't have the money to get more?: I choose not to answer this question Within the past 12 months, did you worry whether your food would run out before you got money to buy more?: I choose not to answer this question Do you have trouble paying for medicines?: I choose not to answer this question Do you have trouble getting transportation to medical appointments?: I choose not to answer this question Do you have trouble paying your heating and electricity bill?: Yes Do you have trouble taking care of your child, family member or friend?: Yes Do you have trouble with day-to-day activities such as bathing, preparing meals, shopping, managing finances, etc.?: No Are you currently unemployed and looking for a job?: No Are you interested in more education?: Yes Please select the resources that you would like help with: Utilities and Daily support Currently or been in a relationship where the following occur: No concerns reported THRIVE Score: 1 AUDIT C Alcohol Use Questionnaire (AUDIT-C) 1. How often do you have a drink containing alcohol?: 2-3 times a week 2. How many drinks containing alcohol do you have on a typical day when you are drinking?: 1 or 2 3. How often do you have six or more drinks on one occasion?: Monthly Total Score: 5 AYUSH-7 AMB Questionnaire AYUSH-7 Date AYUSH - 7 assessed: 04/08/24 Feeling nervous, anxious, or on edge: 1 = Several days Not being able to stop or control worryin = Several days Worrying too much about different things: 0 = Not at all Trouble relaxin = Several days Being so restless that it is hard to sit still: 2 = More than half the days Becoming easily annoyed or irritable: 1 = Several days Feeling afraid as if something awful might happen: 0 = Not at all Total AYUSH-7 score (0-4 normal; 5-9 mild; 10-14 moderate; 15-21 severe): 6 Source: Developed by Drs. Mayo Ivey, Mady Crook, Naun Salas and colleagues, with an educational dyana from [employer]. AYUSH-7 Assessment Billing AYUSH-7 Assessment Tool: AYUSH-7 Assessment 78644 Physical exam (Primary Care) Vital Signs: Last Vital Signs Pulse 78 04/08/24 09:28 BP 110/78 04/08/24 09:28 Pulse Ox 98 04/08/24 09:28 Oxygen Delivery Method Room Air 04/08/24 09:28 Tobacco/Smoking Status: Tobacco use Status Tobacco use date assessed 04/08/24 04/08/24 10:01 Patient Tobacco Use Status Current everyday Tobacco 04/08/24 10:00 Tobacco use type Cigarette 04/08/24 10:00 e-Cigarette/Vaping Use Never Used 04/08/24 10:00 PHQ-9: PHQ-9 Score PHQ-9: Total score 7 04/08/24 10:08 Depression Screening Interpretation: Positive Depression Screening Follow-up: New Medication prescribed Thrive Assessment: Date of Thrive Assessment Date Thrive assessed 03/19/22 04/08/24 09:27 Currently or been in a relationship where the following occur: No concerns reported Results AMB Hemoglobin A1c AMB Hemoglobin A1c 6.7 % Last Edit by Sarai Berger CMA on 04/08/24 10:08 Results Reviewed Results Reviewed: Laboratory Last Values Hgb A1c (Clinic) 6.7 % (4.0-6.0) H 04/08/24 09:58 Coding Level of Care Code Est Pt Level 4 (23803) Diagnoses Type 2 diabetes mellitus with hyperglycemia, without long-term current use of insulin E11.65 Diabetes mellitus type: type 2 Diabetes mellitus long term care pharmacist insulin use: without long term care pharmacist use Diabetes mellitus complication status: with hyperglycemia Attention deficit hyperactivity disorder (ADHD), predominantly inattentive type F90.0 Attention deficit-hyperactivity disorder type: predominantly inattentive Additional Codes AYUSH-7 Assessment Billing - AYUSH-7 Assessment Tool: AYUSH-7 Assessment 25650 ([id number]) PHQ-9 - 67995 - PHQ-9 Billing: Yes ([id number]) Assessment & Plan Assessment & Plan (1) Diabetes: Code(s): E11.9 - Type 2 diabetes mellitus without complications Category: Medical Qualifiers: Diabetes mellitus type: type 2 Diabetes mellitus nursing home insulin use: without long term care pharmacist use Diabetes mellitus complication status: with hyperglycemia Qualified Code(s): E11.65 - Type 2 diabetes mellitus with hyperglycemia Plan: Controlled on current medication No changes Return in 4 months with labs prior Annual eye exams (2) ADHD: Code(s): F90.9 - Attention-deficit hyperactivity disorder, unspecified type Category: Medical Qualifiers: Attention deficit-hyperactivity disorder type: predominantly inattentive Qualified Code(s): F90.0 - Attention-deficit hyperactivity disorder, predominantly inattentive type Plan: PA for focalin Start wellbutrin. 150mg x one week then increase to 300mg daily as tolerated Orders: Orders AMB Hemoglobin A1c Today E11.65 - Type 2 diabetes mellitus with hyperglycemia, E78.00 - Pure hypercholesterolemia, unspecified, Z12.11 - Encounter for screening for malignant neoplasm of colon Microalbumin, Random (w Creat) Today E11.65 - Type 2 diabetes mellitus with hyperglycemia, E78.00 - Pure hypercholesterolemia, unspecified, Z12.11 - Encounter for screening for malignant neoplasm of colon Hemoglobin A1c Today E11.65 - Type 2 diabetes mellitus with hyperglycemia, E78.00 - Pure hypercholesterolemia, unspecified, Z12.11 - Encounter for screening for malignant neoplasm of colon Complete Blood Count Auto Diff Today E11.65 - Type 2 diabetes mellitus with hyperglycemia, E78.00 - Pure hypercholesterolemia, unspecified, Z12.11 - Encounter for screening for malignant neoplasm of colon Comprehensive Met. Panel Today E11.65 - Type 2 diabetes mellitus with hyperglycemia, E78.00 - Pure hypercholesterolemia, unspecified, Z12.11 - Encounter for screening for malignant neoplasm of colon Lipid Panel Today E11.65 - Type 2 diabetes mellitus with hyperglycemia, E78.00 - Pure hypercholesterolemia, unspecified, Z12.11 - Encounter for screening for malignant neoplasm of colon Medications: New bupropion HCl SR (Wellbutrin SR) then increase to 300mg oral daily 150 mg PO BEDTIME 7 tabs 0RF bupropion HCl XL 300 mg PO DAILY 90 tabs 3RF Refilled dexmethylphenidate ER (Focalin XR) Partial Fill upon patient request. 40 mg PO DAILY 60 caps 0RF F90.9 - Attention-deficit hyperactivity disorder, unspecified type dexmethylphenidate ER (Focalin XR) Partial Fill upon patient request. 40 mg PO DAILY 60 caps 0RF F90.9 - Attention-deficit hyperactivity disorder, unspecified type
[2024-04-08 09:28] VITALS: BP 110/78; PULSE 78; O2SAT 98
== END 2024-04-08 10:23 | disposition home or self-care (01) ==
PROVIDERS: PCP Internal Medicine; Visit Provider Internal Medicine
DX: E11.65 Type 2 diabetes mellitus with hyperglycemia (principal); E78.00 Pure hypercholesterolemia, unspecified; Z12.11 Encounter for screening for malignant neoplasm of colon; F90.0 Attention-deficit hyperactivity disorder, predominantly inattentive type

== ENCOUNTER → 2024-04-08 08:50 | Outpatient (BNVA) | payer OTHER, SELFPAY | PROVIDERS: PCP Internal Medicine; Visit Provider Internal Medicine | DX: E11.65 Type 2 diabetes mellitus with hyperglycemia (principal); F90.0 Attention-deficit hyperactivity disorder, predominantly inattentive type | CPT/HCPCS: 83036; 96127; 99212 ==

== ENCOUNTER 2024-06-23 09:20 | Outpatient (AMB) | payer OTHER, SELFPAY ==
--- NOTE | 2024-06-23 09:27 | A.OFFVIS_ITS ---
Vital Signs 06/23/24 09:29 Height 5 ft 10 in Weight 253 lb 8.505 oz BMI 36.4 BP 120/78 Blood Pressure Location Lt brachial Position Sitting Pulse 76 Pulse Source Monitor Intake Visit Reasons: Pre Fabricator/ Naylei/ Tachycardia Allergies apples Allergy (Intermediate, Uncoded 04/08/24 09:26) Sore throat Medication List - Last Reconciled 06/23/24 by Darnell Oliveros MD bupropion HCl XL 300 mg PO DAILY dulaglutide 1.5 mg (0.5 mL) subcut QWEEK 84 days Focalin XR (dexmethylphenidate) 40 mg PO DAILY NS HPI Comments Details: Logan has been referred for evaluation of tachycardia. However, it seems that referral was actually imaging 2022 but he comes today for the appointment. He is not actually aware of why he is here. He denies any previous cardiac history. No known coronary disease myocardial infarction or cardiomyopathy. He has got no symptoms whatsoever either. Unlimited exercise tolerance. On review of vital signs, it seems that he had elevated heart rates in 2022 but they have normalized since that time. 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 Any case, recent heart rates have been normal in today's EKG shows normal sinus rhythm. [facility] Medical History ADHD Surgical History No pertinent past surgical history Family History Mother Depression Sister Diabetes Father Diabetes Other FH: mental illness Social History Household Members: Family Both parents involved: No Caregiver staying overnight: No Housing: House Are you a primary career specialist to a significant other at home: No Do you presently have visiting nurse or other home services: No 75 years or older and lives alone: No Alcohol intake: current Alcohol intake frequency: holidays/special occasions only Patient Tobacco Use Status: Current everyday Tobacco user Tobacco use type: Cigarette Cigarettes Per Day: 1 Years Smoked: recently started e-Cigarette/Vaping Use: Never Used Second Hand Smoke Exposure: No service: No Current occupational status: employed Current occupation: Self Employed Current occupational exposures/hazards: No Cognitive needs: No Hearing needs: No Vision needs: Yes Review of Systems Const Denies weakness ENT Denies dizziness Card Denies chest pain, Denies chest pain with activity, Denies syncope, Denies rapid heart rate, Denies pedal edema, Denies edema, Denies leg edema, Denies lightheadedness, Denies palpitations, Denies dyspnea, Denies dyspnea on exertion and Denies orthopnea Resp Denies cough, Denies dyspnea and Denies dyspnea on exertion GI Denies hematochezia and Denies change in stool character Musc Denies abnormal gait, Denies muscle cramps, Denies muscle weakness, Denies numbness, Denies radiating pain into limb and Denies tingling Neuro Denies abnormal gait, Denies dizziness, Denies syncope, Denies numbness, Denies tingling and Denies weakness Endo Denies palpitations Physical Exam Vital Signs: Last Vital Signs Pulse 76 06/23/24 09:29 BP 120/78 06/23/24 09:29 BMI result Body Mass Index 36.4 Const General: comfortable and no acute distress Orientation/consciousness: patient oriented x3 HEENT Other: Unremarkable Head: Yes normal to inspection Neck Neck: Yes normal visual inspection Chest Chest palpation & inspection: normal inspection of the chest Resp Auscultation: clear to auscultation bilaterally Cardio Palpation: normal PMI Heart sounds: S1 normal heart sound present, S2 normal heart sound present, no gallops, no murmurs and no rubs GI Palpation (GI): Soft to palpation Back/Spine/Pelvis Other: unremarkable Skin General skin exam: no rashes or lesions noted Neuro General: patient oriented x3 Extrem General: Yes normal to inspection Psych Mental Status: mental status grossly normal Office Procedures EKG Details: EKG with underlying sinus rhythm at 76/Min; no significant ST-T changes and otherwise unremarkable. [place]. [id number], Complete Assessment & Plan Assessment & Plan (1) Tachycardia: Code(s): R00.0 - Tachycardia, unspecified Category: Medical (2) ADHD: Code(s): F90.9 - Attention-deficit hyperactivity disorder, unspecified type Category: Medical Qualifiers: Attention deficit-hyperactivity disorder type: predominantly inattentive Qualified Code(s): F90.0 - Attention-deficit hyperactivity disorder, predominantly inattentive type Plan Based on vital signs, evidence of tachycardia or in 2021 and 2022 but since then, normalized. Last few vital sign checks have shown normal heart rates. Today's EKG shows normal sinus rhythm at 76/Min. Etiology for the previous tachycardia not clear. He blames it on stress. Adderall may play a role as he was taking at that time but not anymore. In the absence of symptoms, conservative care. We can check an echocardiogram to evaluate for any cardiomyopathy. If this is unremarkable, then no further testing needed at this time. In case there is recurrent tachycardia, then consider Holter monitor. We discussed about the plan and he agrees. He will contact us with any ongoing concerns. Orders: Orders CA echo transthoracic complete Today R00.0 - Tachycardia, unspecified Coding Level of Care Code New Pt Level 3 (58042) Diagnoses Tachycardia R00.0 Attention deficit hyperactivity disorder (ADHD), predominantly inattentive type F90.0 Attention deficit-hyperactivity disorder type: predominantly inattentive CPT Codes EKG - CPT: 35157-[id number], Complete ([id number])
[2024-06-23 09:29] VITALS: BP 120/78; PULSE 76; BMI 36.4
== END 2024-06-23 09:50 | disposition home or self-care (01) ==
LOC: HO.HCS 09:21
PROVIDERS: PCP Family Medicine; Visit Provider Internal Medicine
DX: R00.0 Tachycardia, unspecified (principal); F90.0 Attention-deficit hyperactivity disorder, predominantly inattentive type
CPT/HCPCS: 93010; 99203

== ENCOUNTER → 2024-06-23 09:20 | Outpatient (BNVA) | payer OTHER, SELFPAY | PROVIDERS: PCP Family Medicine; Visit Provider Internal Medicine | DX: R00.0 Tachycardia, unspecified (principal); F90.0 Attention-deficit hyperactivity disorder, predominantly inattentive type; F17.210 Nicotine dependence, cigarettes, uncomplicated | CPT/HCPCS: 93005; 99202 ==

== ENCOUNTER 2024-08-08 09:05 | Outpatient (AMB) | payer OTHER, SELFPAY ==
--- NOTE | 2024-08-08 09:14 | A.OFFPC_ITS ---
Vital Signs 08/08/24 09:23 08/08/24 09:33 Height 5 ft 10 in Weight 251 lb 4 oz BMI 36.0 BP 122/96 H 116/88 Blood Pressure Location Rt brachial Rt brachial Position Sitting Sitting Respiration 16 Pulse 88 Pulse Source Pulse Oximeter Pulse Oximetry (%) 97 Oxygen Delivery Method Room Air Intake Visit Reasons: DM follow up Intake Note: Diabetes follow up Allergies apples Allergy (Intermediate, Uncoded 04/08/24 09:26) Sore throat Tobacco use date assessed: 08/08/24 Dental Screening Dental Screen Date: 08/08/24 Did you have a dental visit in the last 12 months?: No Did you have a dental problem in the last 6 months where you did not have access to dental care?: No Was dental information given to patient?: Patient has dentist HPI HPI Comments History of Present Illness Details The patient is a 33 year old male with a past medical history of type 2 diabetes, ADHD presenting for follow up Type 2 diabetes: On trulicity 1.5mg weekly. Last A1C is 6.7%. Labs due today ADHD: On Focalin. Doing well on the medication. Continues to run into some medication shortages. Previously was on a combination of XR and short acting adderall. ROS CONSTITUTIONAL: Denies weight loss, fever and chills. HEENT: Denies changes in vision and hearing. RESPIRATORY: Denies SOB and cough. CV: Denies palpitations and CP GI: Denies abdominal pain, nausea, vomiting and diarrhea. : Denies dysuria and urinary frequency. MSK: Denies new myalgia and joint pain. SKIN: Denies rash and pruritus. NEUROLOGICAL: Denies headache PSYCHIATRIC: Denies recent changes in mood. PHYSICAL EXAM: GENERAL: Alert and oriented x 3. NAD EYES: EOMI. Anicteric. HENT: Moist mucous membranes. No scleral icterus. No cervical lymphadenopathy. LUNGS: Clear to auscultation bilaterally. CARDIOVASCULAR: Regular rate and rhythm. No murmur. No JVD. ABDOMEN: Soft, non-tender +bs EXTREMITIES: No edema. Non-tender. SKIN: No rashes or lesions. Warm. NEUROLOGIC: No focal neurological deficits. CN II-XII grossly intact PSYCHIATRIC: Cooperative. Appropriate mood and affect [facility] Medical History ADHD Surgical History No pertinent past surgical history Family History Mother Depression Sister Diabetes Father Diabetes Other FH: mental illness Social History Household Members: Family Both parents involved: No Caregiver staying overnight: No Housing: House Are you a primary managed care analyst to a significant other at home: No Do you presently have visiting nurse or other home services: No 75 years or older and lives alone: No Alcohol intake: current Alcohol intake frequency: holidays/special occasions only Patient Tobacco Use Status: Current someday Tobacco user (1-2 cigarettes every couple days) Tobacco use type: Cigarette Cigarettes Per Day: 1 Years Smoked: 2 e-Cigarette/Vaping Use: Never Used Second Hand Smoke Exposure: No service: No Current occupational status: employed Current occupation: Self Employed Current occupational exposures/hazards: No Cognitive needs: No Hearing needs: No Vision needs: Yes Questionnaire Thrive Questionnaire Date Thrive assessed: 08/08/24 I am a: Patient What is your living situation today?: I have a steady place to live Within the past 12 months, did the food you bought not last and you didn't have the money to get more?: I choose not to answer this question Within the past 12 months, did you worry whether your food would run out before you got money to buy more?: I choose not to answer this question Do you have trouble paying for medicines?: I choose not to answer this question Do you have trouble getting transportation to medical appointments?: I choose not to answer this question Do you have trouble paying your heating and electricity bill?: Yes Do you have trouble taking care of your child, family member or friend?: Yes Do you have trouble with day-to-day activities such as bathing, preparing meals, shopping, managing finances, etc.?: No Are you currently unemployed and looking for a job?: No Are you interested in more education?: Yes Currently or been in a relationship where the following occur: No concerns reported THRIVE Score: 1 AYUSH-7 AMB Questionnaire AYUSH-7 Date AYUSH - 7 assessed: 04/08/24 Source: Developed by Drs. Mayo Ivey, Mady Crook, Naun Salas and colleagues, with an educational dyana from [employer]. Physical exam (Primary Care) Vital Signs: Last Vital Signs Pulse 88 08/08/24 09:23 Resp 16 08/08/24 09:23 BP 116/88 08/08/24 09:33 Pulse Ox 97 08/08/24 09:23 Oxygen Delivery Method Room Air 08/08/24 09:23 BMI result Body Mass Index 36.0 Tobacco/Smoking Status: Tobacco use Status Tobacco use date assessed 08/08/24 08/08/24 09:16 Patient Tobacco Use Status Current someday Tobacco (1-2 08/08/24 09:28 cigarettes every couple days) Tobacco use type Cigarette 08/08/24 09:16 e-Cigarette/Vaping Use Never Used 08/08/24 09:16 Thrive Assessment: Date of Thrive Assessment Date Thrive assessed 08/08/24 08/08/24 09:16 Currently or been in a relationship where the following occur: No concerns r eported Coding Level of Care Code Est Pt Level 3 (20992) Complex EM visit Add On G2211 Diagnoses Type 2 diabetes mellitus with hyperglycemia, without long-term current use of insulin E11.65 Diabetes mellitus type: type 2 Diabetes mellitus intermediate school teacher insulin use: without intermediate school teacher use Diabetes mellitus complication status: with hyperglycemia Hypercholesterolemia E78.00 Attention deficit hyperactivity disorder (ADHD), predominantly inattentive type F90.0 Attention deficit-hyperactivity disorder type: predominantly inattentive Assessment & Plan Assessment & Plan (1) Diabetes: Code(s): E11.9 - Type 2 diabetes mellitus without complications Category: Medical Qualifiers: Diabetes mellitus type: type 2 Diabetes mellitus intermediate school teacher insulin use: without chcf use Diabetes mellitus complication status: with hyperglycemia Qualified Code(s): E11.65 - Type 2 diabetes mellitus with hyperglycemia (2) Hypercholesterolemia: Code(s): E78.00 - Pure hypercholesterolemia, unspecified Category: Medical (3) ADHD: Code(s): F90.9 - Attention-deficit hyperactivity disorder, unspecified type Category: Medical Qualifiers: Attention deficit-hyperactivity disorder type: predominantly inattentive Qualified Code(s): F90.0 - Attention-deficit hyperactivity disorder, predomin antly inattentive type Plan Diabetes is well controlled ADD is stable on medications He is referred to urology for vasectomy Orders: Orders Comprehensive Met. Panel Today E11.65 - Type 2 diabetes mellitus with hyperglycemia, E78.00 - Pure hypercholesterolemia, unspecified Lipid Panel Today E11.65 - Type 2 diabetes mellitus with hyperglycemia, E78.00 - Pure hypercholesterolemia, unspecified Microalbumin, Random (w Creat) Today E11.65 - Type 2 diabetes mellitus with hyperglycemia, E78.00 - Pure hypercholesterolemia, unspecified Hemoglobin A1c Today E11.65 - Type 2 diabetes mellitus with hyperglycemia, E78.00 - Pure hypercholesterolemia, unspecified Complete Blood Count Auto Diff Today E11.65 - Type 2 diabetes mellitus with hyperglycemia, E78.00 - Pure hypercholesterolemia, unspecified Referrals Urology Referral E11.65 - Type 2 diabetes mellitus with hyperglycemia, E78.00 - Pure hypercholesterolemia, unspecified, Z30.9 - Encounter for contraceptive management, unspecified
[2024-08-08 09:23] VITALS: BP 122/96; PULSE 88; RESP 16; O2SAT 97; BMI 36.0
[2024-08-08 09:33] VITALS: BP 116/88
== END 2024-08-08 09:45 | disposition home or self-care (01) ==
LOC: HO.HMCFM 09:06
PROVIDERS: PCP Internal Medicine; Visit Provider Internal Medicine
DX: E11.65 Type 2 diabetes mellitus with hyperglycemia (principal); E78.00 Pure hypercholesterolemia, unspecified; F90.0 Attention-deficit hyperactivity disorder, predominantly inattentive type

== ENCOUNTER → 2024-08-08 09:05 | Outpatient (BNVA) | payer OTHER, SELFPAY | PROVIDERS: PCP Internal Medicine; Visit Provider Internal Medicine | DX: E11.65 Type 2 diabetes mellitus with hyperglycemia (principal); E78.00 Pure hypercholesterolemia, unspecified; F90.0 Attention-deficit hyperactivity disorder, predominantly inattentive type; Z79.85 Long-term (current) use of injectable non-insulin antidiabetic drugs; Z79.899 Other long term (current) drug therapy | CPT/HCPCS: 99212 ==

== ENCOUNTER → 2024-08-31 13:30 | Outpatient (BNV) | payer OTHER, SELFPAY | PROVIDERS: PCP Internal Medicine; Visit Provider Internal Medicine | DX: E11.65 Type 2 diabetes mellitus with hyperglycemia (principal) | CPT/HCPCS: 83036 ==

== ENCOUNTER 2024-10-31 10:55 | Outpatient (AMB) | payer OTHER, SELFPAY ==
--- NOTE | 2024-10-31 11:00 | A.OFFVIS_ITS ---
Intake Visit Reasons: vasectomy consult Intake Note: New patient presents today for initial visit for vasectomy consult Urology Medication:None Blood Thinner:None Antibiotic Allergies:None Allergies apples Allergy (Intermediate, Uncoded 04/08/24 09:26) Sore throat Medication List - Last Reconciled 10/31/24 by Ankur Hernandez MD dulaglutide 1.5 mg (0.5 mL) subcut QWEEK 84 days Focalin XR (dexmethylphenidate) 40 mg PO DAILY NS HPI Comments Details: Jono is here for vasectomy counselling. He has 2 children. Vasectomy procedure was discussed at length with the patient. He was informed that vasectomy is a safe, permanent, and effective form of control but there are risks involved. It may involve risk of hematoma, procedure failure which is rare, sperm granuloma which may cause mild pain, and congestion which may cause sense of pressure and generally resolves after several weeks. Also discussed is the reported post vasectomy pain syndrome with chronic testicular pain which is uncommon <5% The patient was advised that it is necessary to use other types of control methods for > 12 weeks and until we send semen for analysis to make sure there is no more sperm in the semen. History of Present Illness - The patient is a 33-year-old male presenting for a vasectomy consultation. - He has two children (boys) and is considering vasectomy as a permanent control method. - The procedure involves transecting and cauterizing the vas deferens, with a follow-up semen analysis to ensure efficacy. - Potential complications discussed include bruising, hematoma, sperm granuloma, and chronic post-vasectomy pain syndrome, discussed. Plan - Schedule the vasectomy procedure after a 30-day waiting period, with options for in-office or outpatient settings. [facility] Medical History ADHD Surgical History No pertinent past surgical history Family History Mother Depression Sister Diabetes Father Diabetes Other FH: mental illness Social History Household Members: Family Both parents involved: No Caregiver staying overnight: No Housing: House Are you a primary landcare facilitator to a significant other at home: No Do you presently have visiting nurse or other home services: No 75 years or older and lives alone: No Alcohol intake: current Alcohol intake frequency: holidays/special occasions only Patient Tobacco Use Status: Current someday Tobacco user (1-2 cigarettes every couple days) Tobacco use type: Cigarette Cigarettes Per Day: 1 Years Smoked: 2 e-Cigarette/Vaping Use: Never Used Second Hand Smoke Exposure: No service: No Current occupational status: employed Current occupation: Self Employed Current occupational exposures/hazards: No Cognitive needs: No Hearing needs: No Vision needs: Yes Review of Systems Const All systems reviewed & are unremarkable except as noted in HPI and below Reports no additional complaints Eyes Reports no additional complaints ENT Reports no additional complaints Card Reports no additional complaints Resp Reports no additional complaints GI Reports no additional complaints Reports as per HPI Musc Reports no additional complaints Skin/Breast Reports system reviewed and no additional complaints, except as documented Neuro Reports no additional complaints Psych Reports no additional complaints Endo Reports no additional complaints Grady/Lymph Reports no additional complaints Aller/Immun Reports no additional complaints Physical Exam Const General: healthy appearing, no acute distress and well developed Orientation/consciousness: patient oriented x3 HEENT Head: Yes normocephalic and Yes atraumatic Eyes Conjunctivae: conjunctivae normal Neck Neck: Yes normal visual inspection Chest Chest palpation & inspection: normal inspection of the chest Resp Effort & Inspection: normal respiratory effort GI Inspection: Yes normal to inspection Neuro General: patient oriented x3 Psych Appearance: grossly normal Affect: normal affect Assessment & Plan Assessment & Plan (1) Encounter for vasectomy counseling: Code(s): Z30.09 - Encounter for other general counseling and advice on contraception Category: Medical (2) Anxiety about health: Code(s): F41.8 - Other specified anxiety disorders Category: Medical (3) Diabetes: Code(s): E11.9 - Type 2 diabetes mellitus without complications Category: Medical Qualifiers: Diabetes mellitus type: type 2 Diabetes mellitus senior care insulin use: without senior care use Diabetes mellitus complication status: with hyperglycemia Qualified Code(s): E11.65 - Type 2 diabetes mellitus with hyperglycemia Plan Office vasectomy with Dr. Smith Comorbidity diabetes. Review of chart last hemoglobin A1c in July was 7.0 Patient Instructions: The patient had an opportunity to ask questions regarding treatment plan. The patient expressed understanding and agreement with the above treatment plan. The patient is aware they should contact our office by phone for worsening of their current condition or the appearance of new symptoms. Compliance is encouraged with any medications and followup testing that is ordered. It is a privilege to be allowed the opportunity to participate in the urologic care of your patient. If you have any questions or concerns regarding treatment for the above conditions please do not hesitate to contact me. The office telephone contact is [phone]. This note is constructed in part using voice recognition software. While every effort has been made to ensure accuracy quality systems specialist errors may have been included. Yours sincerely, Ankur Hernandez MD Scribe Plan - Not visible on output: Patient was informed and verbally consented to the use of an ambient scribe for clinic note documentation during this visit. Coding Level of Care Code New Pt Level 4 (42409) Diagnoses Encounter for vasectomy counseling Z30.09 Anxiety about health F41.8 Type 2 diabetes mellitus with hyperglycemia, without long-term current use of insulin E11.65 Diabetes mellitus type: type 2 Diabetes mellitus senior care insulin use: without superintendent marine oil terminal use Diabetes mellitus complication status: with hyperglycemia
--- OUTSIDE RECORDS SUMMARY | 2024-10-31 11:54 | XMS_ITS ---
Author Name [facility] Organization Unknown Care Team Organization Name Specialty Phone Email Start Date End Da te [facility] 02/04/2022
== END 2024-10-31 11:25 | disposition home or self-care (01) ==
LOC: HO.HUSH 10:55
PROVIDERS: PCP Internal Medicine; Visit Provider Urology
DX: Z30.09 Encounter for other general counseling and advice on contraception (principal); F41.8 Other specified anxiety disorders; E11.65 Type 2 diabetes mellitus with hyperglycemia
CPT/HCPCS: 99214

== ENCOUNTER → 2024-10-31 10:55 | Outpatient (BNVA) | payer OTHER, SELFPAY | PROVIDERS: PCP Internal Medicine; Visit Provider Urology | DX: Z30.09 Encounter for other general counseling and advice on contraception (principal); F41.8 Other specified anxiety disorders; E11.9 Type 2 diabetes mellitus without complications | CPT/HCPCS: 99212 ==

== ENCOUNTER 2024-12-13 08:10 | Outpatient (AMB) | payer OTHER, SELFPAY ==
--- NOTE | 2024-12-13 08:16 | MHC.PC.OV ---
Vital Signs 12/13/24 08:19 Height 5 ft 10 in Weight 249 lb BMI 35.7 BP 116/86 Blood Pressure Location Lt brachial Position Sitting Respiration 14 Pulse 97 Pulse Oximetry (%) 97 Oxygen Delivery Method Room Air Intake Visit Reasons: dm Intake Note: Diabetes follow up Drink Mixer Required: No Allergies apples Allergy (Intermediate, Uncoded 12/13/24 08:18) Sore throat Tobacco use date assessed: 12/13/24 Dental Screening Dental Screen Date: 08/08/24 HPI HPI Comments History of Present Illness Details The patient is a 33 year old male with a past medical history of type 2 diabetes, ADHD presenting for follow up Type 2 diabetes: On trulicity 1.5mg weekly. A1C 7.6% from 6.7%. Advised needs full labs ADHD: On Focalin. Doing well on the medication. . Previously on combination of XR and short acting adderall. Reports skin bumps elbows belly groing. Slight itchy rash in the ears and upper gluteal cleft Has chronic cyst left neck. not painful ROS see HPI PHYSICAL EXAM: GENERAL: Alert and oriented x 3. NAD EYES: EOMI. Anicteric. HENT: Moist mucous membranes. No scleral icterus. No cervical lymphadenopathy. LUNGS: Clear to auscultation bilaterally. CARDIOVASCULAR: Regular rate and rhythm. No murmur. No JVD. ABDOMEN: Soft, non-tender +bs EXTREMITIES: No edema. Non-tender. SKIN: Eczema ear, buttock. Pilaris abdomen arms NEUROLOGIC: No focal neurological deficits. CN II-XII grossly intact PSYCHIATRIC: Cooperative. Appropriate mood and affect [facility] Medical History ADHD Surgical History No pertinent past surgical history Family History Mother Depression Sister Diabetes Father Diabetes Other FH: mental illness Social History Household Members: Family Both parents involved: No Caregiver staying overnight: No Housing: House Are you a primary care director rn to a significant other at home: No Do you presently have visiting nurse or other home services: No 75 years or older and lives alone: No Alcohol intake: current Alcohol intake frequency: holidays/special occasions only Patient Tobacco Use Status: Former Tobacco user (1-2 cigarettes every couple days) Tobacco use type: Cigarette Cigarettes Per Day: 1 Years Smoked: 2 e-Cigarette/Vaping Use: Never Used Second Hand Smoke Exposure: No service: No Current occupational status: employed Current occupation: Self Employed Current occupational exposures/hazards: No Cognitive needs: No Hearing needs: No Vision needs: Yes Questionnaire Thrive Questionnaire Date Thrive assessed: 04/08/24 I am a: Patient What is your living situation today?: I have a steady place to live Within the past 12 months, did the food you bought not last and you didn't have the money to get more?: I choose not to answer this question Within the past 12 months, did you worry whether your food would run out before you got money to buy more?: I choose not to answer this question Do you have trouble paying for medicines?: I choose not to answer this question Do you have trouble getting transportation to medical appointments?: I choose not to answer this question Do you have trouble paying your heating and electricity bill?: Yes Do you have trouble taking care of your child, family member or friend?: Yes Do you have trouble with day-to-day activities such as bathing, preparing meals, shopping, managing finances, etc.?: No Are you currently unemployed and looking for a job?: No Are you interested in more education?: Yes Currently or been in a relationship where the following occur: No concerns reported THRIVE Score: 1 AYUSH-7 AMB Questionnaire AYUSH-7 Date AYUSH - 7 assessed: 04/08/24 Source: Developed by Drs. Mayo Ivey, Mady Crook, Naun Salas and colleagues, with an educational dyana from [employer]. Physical exam (Primary Care) Vital Signs: Last Vital Signs Pulse 97 12/13/24 08:19 Resp 14 12/13/24 08:19 BP 116/86 12/13/24 08:19 Pulse Ox 97 12/13/24 08:19 Oxygen Delivery Method Room Air 12/13/24 08:19 BMI result Body Mass Index 35.7 Tobacco/Smoking Status: Tobacco use Status Tobacco use date assessed 12/13/24 12/13/24 08:23 Patient Tobacco Use Status Former Tobacco user (1-2 12/13/24 08:23 cigarettes every couple days ) Tobacco use type Cigarette 12/13/24 08:23 e-Cigarette/Vaping Use Never Used 12/13/24 08:23 Thrive Assessment: Date of Thrive Assessment Date Thrive assessed 04/08/24 12/13/24 08:23 Currently or been in a relationship where the following occur: No concerns reported Results AMB Hemoglobin A1c AMB Hemoglobin A1c 7.6 % Last Edit by Sarai Berger CMA on 12/13/24 08:30 Results Reviewed Results Reviewed: Laboratory Last Values Hgb A1c (Clinic) 7.6 % (4.0-6.0) H 12/13/24 08:23 Coding Level of Care Code Est Pt Level 4 (24969) Complex EM visit Add On G2211 Diagnoses Type 2 diabetes mellitus with hyperglycemia, without long-term current use of insulin E11.65 Diabetes mellitus type: type 2 Diabetes mellitus regional intermodal truck driver insulin use: without regional intermodal truck driver use Diabetes mellitus complication status: with hyperglycemia Difficulty concentrating R41.840 Rash and nonspecific skin eruption R21 Assessment & Plan Assessment & Plan (1) Diabetes: Code(s): E11.9 - Type 2 diabetes mellitus without complications Category: Medical Qualifiers: Diabetes mellitus type: type 2 Diabetes mellitus mcfp insulin use: without regional intermodal truck driver use Diabetes mellitus complication status: with hyperglycemia Qualified Code(s): E11.65 - Type 2 diabetes mellitus with hyperglycemia (2) Difficulty concentrating: Code(s): R41.840 - Attention and concentration deficit Category: Medical (3) Rash and nonspecific skin eruption: Code(s): R21 - Rash and other nonspecific skin eruption Category: Medical Plan DM-uncontrolled. dietary indiscretion over summer. increast trulicity to 3mg weekly. annual eye exams ADD-well controlled Rash-triamcinolone prn cyst/lipoma-decline referral Orders: Orders AMB Hemoglobin A1c Today E11.65 - Type 2 diabetes mellitus with hyperglycemia Medications: New triamcinolone acetonide 0.1% 1 appl topical BID 80 grams 1RF dulaglutide (Trulicity) 3 mg (0.5 mL) subcut QWEEK 6 mL 1RF Discontinued dulaglutide Discontinued Reason: Doctor's Order 1.5 mg (0.5 mL) subcut QWEEK 84 days 6 mL 1RF E11.9 - Type 2 diabetes mellitus without complications
[2024-12-13 08:19] VITALS: BP 116/86; PULSE 97; RESP 14; O2SAT 97; BMI 35.7
== END 2024-12-13 09:50 | disposition home or self-care (01) ==
LOC: HO.HMCFM 08:11
PROVIDERS: PCP Internal Medicine; Visit Provider Internal Medicine
DX: E11.65 Type 2 diabetes mellitus with hyperglycemia (principal); R41.840 Attention and concentration deficit; R21 Rash and other nonspecific skin eruption

== ENCOUNTER → 2024-12-13 08:10 | Outpatient (BNVA) | payer OTHER, SELFPAY | PROVIDERS: PCP Internal Medicine; Visit Provider Internal Medicine | DX: E11.65 Type 2 diabetes mellitus with hyperglycemia (principal); F90.9 Attention-deficit hyperactivity disorder, unspecified type; R21 Rash and other nonspecific skin eruption; Z79.85 Long-term (current) use of injectable non-insulin antidiabetic drugs; Z79.899 Other long term (current) drug therapy | CPT/HCPCS: 83036; 99212 ==

== ENCOUNTER 2025-01-03 14:56 | Outpatient (AMB) | payer OTHER, SELFPAY ==
--- NOTE | 2025-01-03 15:28 | MHC.OFFVIS ---
Intake Visit Reasons: vasectomy Intake Note: Patient presents today for vasectomy Urology Medication:None Blood Thinner:None Antibiotic Allergies:None Allergies apples Allergy (Intermediate, Uncoded 12/13/24 08:18) Sore throat HPI Comments Details: Jono is here for vasectomy counselling. He has 2 children. Vasectomy procedure was discussed at length with the patient. He was informed that vasectomy is a safe, permanent, and effective form of control but there are risks involved. It may involve risk of hematoma, procedure failure which is rare, sperm granuloma which may cause mild pain, and congestion which may cause sense of pressure and generally resolves after several weeks. Also discussed is the reported post vasectomy pain syndrome with chronic testicular pain which is uncommon <5% The patient was advised that it is necessary to use other types of control methods for > 12 weeks and until we send semen for analysis to make sure there is no more sperm in the semen. History of Present Illness - The patient is a 33-year-old male presenting for a vasectomy consultation. - He has two children (boys) and is considering vasectomy as a permanent control method. - The procedure involves transecting and cauterizing the vas deferens, with a follow-up semen analysis to ensure efficacy. - Potential complications discussed include bruising, hematoma, sperm granuloma, and chronic post-vasectomy pain syndrome, discussed. Plan - Schedule the vasectomy procedure after a 30-day waiting period, with options for in-office or outpatient settings. [facility] for [facility] procedure [facility] Medical History ADHD Surgical History No pertinent past surgical history Family History Mother Depression Sister Diabetes Father Diabetes Other FH: mental illness Social History Household Members: Family Both parents involved: No Caregiver staying overnight: No Housing: House Are you a primary career based intervention coordinator to a significant other at home: No Do you presently have visiting nurse or other home services: No 75 years or older and lives alone: No Alcohol intake: current Alcohol intake frequency: holidays/special occasions only Patient Tobacco Use Status: Former Tobacco user (1-2 cigarettes every couple days) Tobacco use type: Cigarette Cigarettes Per Day: 1 Years Smoked: 2 e-Cigarette/Vaping Use: Never Used Second Hand Smoke Exposure: No service: No Current occupational status: employed Current occupation: Self Employed Current occupational exposures/hazards: No Cognitive needs: No Hearing needs: No Vision needs: Yes Review of Systems Const Denies chills and Denies fever(s) Card Reports no additional complaints and Denies syncope Resp Denies cough GI Denies abdominal pain and Denies heartburn Reports as per HPI and Denies change in libido Neuro Denies syncope Psych Denies change in libido Endo Denies change in libido Physical Exam Const General: cooperative, healthy appearing, comfortable and no acute distress Orientation/consciousness: patient oriented x3 HEENT Face and sinus: Yes normal facial exam Mouth: moist mucous membranes Neck Neck: Yes normal visual inspection, Yes full ROM and Yes trachea midline Chest Chest palpation & inspection: normal inspection of the chest Resp Effort & Inspection: normal respiratory effort, able to speak in complete sentences and no respiratory distress GI Inspection: Yes normal to inspection Back/Spine/Pelvis Cervical Spine: normal cervical lordosis Thoracic/Lumbar Spine: thoracic and lumbar spine normal to inspection Skin General skin exam: no rashes or lesions noted Neuro General: patient oriented x3, gait normal, tone normal and moves all extremities Extrem General: Yes normal to inspection and Yes capillary refill normal Office Procedures Vasectomy Details: Preoperative diagnosis: Anxiety regarding Postoperative diagnosis: Anxiety regarding unplanned Procedure: Bilateral vasectomy Informed consent had been completed. Preoperative and postoperative instructions were provided to the patient. The patient has transportation home identified at the completion of the procedure. Anti-anxiolytic prescription medication had been taken after consent verification and all questions answered. A limited amount of pain medication was also provided. The penis was elevated using a rubber band that was attached to the patient's shirt. Both vasa were palpated through the skin using a 3 finger technique and the penoscrotal junction was prepped with Betadine. After Betadine application the left vas was elevated using a 3 finger grasping technique. 1% lidocaine was used to create a subdermal bubble. Further anesthetic was then advanced using the 25-gauge needle along the vasa in a proximal fashion. Approximately 2 minutes were allowed to for local anesthetic uptake. Using the sharp spreading instrument the scrotal skin was spread longitudinally in line with the vasa until the subdermal layer had been divided. The vasa was then elevated from the scrotum using a ring clamp. Care was taken to elevate the superior portion of the vasa by rotating the ring clamp in a caudad direction. The battery powered cautery was used to divide the vasal sheath in a longitudinal direction on the exposed vasa and to strip the vasal sheath from the vasa. The sharp spreading instrument was used to further expose the vas within the vasal sheath. A 2nd narrower ring clamp was placed on the exposed vas and used to lift the vas from the vasal sheath. The cautery was used to divide vasal attachments and allow full exposure of a small loop of vasa. The sharp spreading instrument was then used to create a tunnel under the vasa and spread to allow the blood vessels of the vasa to retract from the vasa. A mosquito clamp was placed on the proximal portion of the vas. The battery-powered cautery was used to make a partial division in the proximal vas and then inserted in order to cauterize the proximal end of the vas. This was then cut and allowed to retract into the vasal sheath. The mosquito was then used to twist the vasa 180 degrees creating a fascial interposition as the proximal portion of the vas retracted in the vasal sheath. Using a 4-0 chromic suture the fascial interposition was sutured closed. The distal portion of the vas was then cut in order to obtain a segment of vasa. An open distal vas is preferred for minimizing postprocedure pain. The vasa were allowed to retract back into the scrotum. A small snap was then used to approximate the skin edges and allow hemostasis without placement of a suture. A similar procedure was repeated on the right side. He tolerated the procedure well. Triple antibiotic was applied. A gauze was applied. An ice pack was applied to assist with minimizing swelling. Postoperative instructions were confirmed. He understands the need to continue to use control methods. A semen sample should be brought for inspection under the microscope in 10-12 weeks. CPT 83865 Vasectomy performed by: Geoffrey Smith Informed consent given: Yes Time out checklist: patient, procedure, site marked/identified, positioning of patient, supplies available, allergies confirmed and team agrees on procedure Anesthetic used: other Specimens: vas segments not sent to pathology [id number] - Vasectomy Office Meds lidocaine (PF) 10 mg/mL (1 %) injection solution Performing Provider: Geoffrey Smith MD [place] [facility] [place] [facility] Administered by: Fallon Najera RN on 01/03/25 15:40 Dose Route Admin Location Dispensed Lot Number Expiration Date NDC Parks Recreation Coordinator 2 mL Infiltration 10 mL Total Dispensed Waste 10 mL 0 % Assessment & Plan Assessment & Plan (1) Anxiety about health: Code(s): F41.8 - Other specified anxiety disorders Category: Medical Plan Twelve week follow-up semen analysis Orders: Orders AMB Vasectomy Today Z30.09 - Encounter for other general counseling and advice on contraception, Z30.9 - Encounter for contraceptive management, unspecified Patient Instructions: This note is constructed using voice recognition software. While every effort has been made to ensure accuracy paste mixer liquid errors may have been included. Imaging studies, laboratory and physical exam results were discussed and reviewed in detail. No major barriers to patient understanding were identified. An opportunity to ask questions regarding the treatment plan was provided. All questions were answered. The patient expressed understanding and agreement with the above treatment plan. The patient is aware they should contact our office by phone for worsening of their current condition or the appearance of new urologic symptoms. Compliance is encouraged with any medications and followup testing that is ordered. It is a privilege to participate in the urologic care of your patient. If you have any questions or concerns regarding treatment for the above conditions, or other urologic issues, please do not hesitate to contact me. The office telephone contact is [phone]. Sincerely, Dr Geoffrey Smith MD, [facility] - Urology Compassionate Specialist Care for the Genitourinary System Coding Level of Care Code Procedure Only Diagnoses Anxiety about health F41.8 CPT Codes Office Procedure - CPT: 71801 - Vasectomy ([id number])
== END 2025-01-03 16:27 | disposition home or self-care (01) ==
LOC: HO.HUSH 14:57
PROVIDERS: PCP Internal Medicine; Visit Provider Urology
DX: Z30.2 Encounter for sterilization (principal); F41.8 Other specified anxiety disorders; Z30.09 Encounter for other general counseling and advice on contraception
CPT/HCPCS: 55250

== ENCOUNTER → 2025-01-03 14:56 | Outpatient (BNVA) | payer OTHER, SELFPAY | PROVIDERS: PCP Internal Medicine; Visit Provider Urology | DX: Z30.2 Encounter for sterilization (principal); F41.8 Other specified anxiety disorders | CPT/HCPCS: 55250; J2003 ==

== ENCOUNTER 2025-01-05 09:33 | Outpatient (AMB) | payer OTHER, SELFPAY ==
--- NOTE | 2025-01-05 10:08 | A.OFFVIS_ITS ---
Intake Visit Reasons: vas swelling Intake Note: Patient presents today for after vasectomy testicular swelling Urology Medication:None Blood Thinner:None Antibiotic Allergies:None Anesthesia Associate Required: No Accompanied by: Self / Same As Patient Allergies apples Allergy (Intermediate, Uncoded 03/17/25 09:22) Sore throat HPI Comments Details: Jono is a pleasant male. He is a patient of Dr. Santos. He seen for the following urologic conditions - anxiety about health Vasectomy procedure last week Mild swelling on scrotal side BMI over 35 Diabetic Pain medication and antibiotic provided given high-risk potential infection Reiterated need for follow-up to perform 12 week semen analysis to ensure vasectomy success PFSH Medical History (Updated 03/28/25 @ 15:30 by Geoffrey Smith MD) ADHD Surgical History (Updated 03/17/25 @ 09:22 by Sarai Berger CMA) H/O vasectomy No pertinent past surgical history Family History Mother Depression Sister Diabetes Father Diabetes Other FH: mental illness Social History Household Members: Family Both parents involved: No Caregiver staying overnight: No Housing: House Are you a primary healthcare interpreter to a significant other at home: No Do you presently have visiting nurse or other home services: No 75 years or older and lives alone: No Alcohol intake: current Alcohol intake frequency: holidays/special occasions only Patient Tobacco Use Status: Former Tobacco user (1-2 cigarettes every couple days) Tobacco use type: Cigarette Cigarettes Per Day: 1 Years Smoked: 2 e-Cigarette/Vaping Use: Never Used Second Hand Smoke Exposure: No service: No Current occupational status: employed Current occupation: Self Employed Current occupational exposures/hazards: No Cognitive needs: No Hearing needs: No Vision needs: Yes Review of Systems Const Denies chills and Denies fever(s) Card Reports no additional complaints and Denies syncope Resp Denies cough GI Denies abdominal pain and Denies heartburn Reports as per HPI and Denies change in libido Neuro Denies syncope Psych Denies change in libido Endo Denies change in libido Physical Exam Const General: cooperative, healthy appearing, comfortable and no acute distress Orientation/consciousness: patient oriented x3 HEENT Face and sinus: Yes normal facial exam Mouth: moist mucous membranes Neck Neck: Yes normal visual inspection, Yes full ROM and Yes trachea midline Chest Chest palpation & inspection: normal inspection of the chest Resp Effort & Inspection: normal respiratory effort, able to speak in complete sentences and no respiratory distress GI Inspection: Yes normal to inspection Back/Spine/Pelvis Cervical Spine: normal cervical lordosis Thoracic/Lumbar Spine: thoracic and lumbar spine normal to inspection Skin General skin exam: no rashes or lesions noted Neuro General: patient oriented x3, gait normal, tone normal and moves all extremities Extrem General: Yes normal to inspection and Yes capillary refill normal Office Procedures Vasectomy Details: Preoperative diagnosis: Anxiety regarding Postoperative diagnosis: Anxiety regarding unplanned Procedure: Bilateral vasectomy Informed consent had been completed. Preoperative and postoperative instructions were provided to the patient. The patient has transportation home identified at the completion of the procedure. Anti-anxiolytic prescription medication had been taken after consent verification and all questions answered. A limited amount of pain medication was also provided. The penis was elevated using a rubber band that was attached to the patient's shirt. Both vasa were palpated through the skin using a 3 finger technique and the penoscrotal junction was prepped with Betadine. After Betadine application the left vas was elevated using a 3 finger grasping technique. 1% lidocaine was used to create a subdermal bubble. Further anesthetic was then advanced using the 25-gauge needle along the vasa in a proximal fashion. Approximately 2 minutes were allowed to for local anesthetic uptake. Using the sharp spreading instrument the scrotal skin was spread longitudinally in line with the vasa until the subdermal layer had been divided. The vasa was then elevated from the scrotum using a ring clamp. Care was taken to elevate the superior portion of the vasa by rotating the ring clamp in a caudad direction. The battery powered cautery was used to divide the vasal sheath in a longitudinal direction on the exposed vasa and to strip the vasal sheath from the vasa. The sharp spreading instrument was used to further expose the vas within the vasal sheath. A 2nd narrower ring clamp was placed on the exposed vas and used to lift the vas from the vasal sheath. The cautery was used to divide vasal attachments and allow full exposure of a small loop of vasa. The sharp spreading instrument was then used to create a tunnel under the vasa and spread to allow the blood vessels of the vasa to retract from the vasa. A mosquito clamp was placed on the proximal portion of the vas. The battery- powered cautery was used to make a partial division in the proximal vas and then inserted in order to cauterize the proximal end of the vas. This was then cut and allowed to retract into the vasal sheath. The mosquito was then used to twist the vasa 180 degrees creating a fascial interposition as the proximal portion of the vas retracted in the vasal sheath. Using a 4-0 chromic suture the fascial interposition was sutured closed. The distal portion of the vas was then cut in order to obtain a segment of vasa. An open distal vas is preferred for minimizing postprocedure pain. The vasa were allowed to retract back into the scrotum. A small snap was then used to approximate the skin edges and allow hemostasis without placement of a suture. A similar procedure was repeated on the right side. He tolerated the procedure well. Triple antibiotic was applied. A gauze was applied. An ice pack was applied to assist with minimizing swelling. Postoperative instructions were confirmed. He understands the need to continue to use control methods. A semen sample should be brought for inspection under the microscope in 10-12 weeks. CPT 06510 Informed consent given: Yes Informed consent signed: Yes Time out checklist: patient, procedure, site marked/identified, positioning of patient, supplies available, allergies confirmed and team agrees on procedure Preoperative sedation: Yes Anesthetic used: other Specimens: vas segments not sent to pathology [id number] - Vasectomy Assessment & Plan Assessment & Plan (1) Orchalgia: Code(s): N50.819 - Testicular pain, unspecified Category: Medical Plan Keep 12 week follow-up Medications: New sulfamethoxazole-trimethoprim 400-80 mg (Bactrim) 1 tab PO BID 7 tabs 0RF 7 days E11.65 - Type 2 diabetes mellitus with hyperglycemia oxycodone Partial Fill upon patient request. 5 mg PO BEDTIME PRN 10 tabs 0RF pain 30 days E11.65 - Type 2 diabetes mellitus with hyperglycemia, N20.0 - Calculus of kidney Patient Instructions: This note is constructed using voice recognition software. While every effort has been made to ensure accuracy electromechanical technician errors may have been included. Imaging studies, laboratory and physical exam results were discussed and reviewed in detail. No major barriers to patient understanding were identified. An opportunity to ask questions regarding the treatment plan was provided. All questions were answered. The patient expressed understanding and agreement with the above treatment plan. The patient is aware they should contact our office by phone for worsening of their current condition or the appearance of new urologic symptoms. Compliance is encouraged with any medications and followup testing that is ordered. It is a privilege to participate in the urologic care of your patient. If you have any questions or concerns regarding treatment for the above conditions, or other urologic issues, please do not hesitate to contact me. The office telephone contact is [phone]. Sincerely, Dr Geoffrey Smith MD, [facility] - Urology Compassionate Specialist Care for the Genitourinary System Coding Level of Care Code Est Pt Level 3 (61712) Diagnoses Orchalgia N50.819 CPT Codes Office Procedure - CPT: 20088 - Vasectomy ([id number])
== END 2025-01-05 10:54 | disposition home or self-care (01) ==
LOC: HO.HUSH 09:33
PROVIDERS: PCP Internal Medicine; Visit Provider Urology
DX: N50.819 Testicular pain, unspecified (principal); Z30.2 Encounter for sterilization
CPT/HCPCS: 99024

== ENCOUNTER → 2025-01-05 09:33 | Outpatient (BNVA) | payer OTHER, SELFPAY | PROVIDERS: PCP Internal Medicine; Visit Provider Urology | DX: N50.819 Testicular pain, unspecified (principal); N50.89 Other specified disorders of the male genital organs; Z98.890 Other specified postprocedural states | CPT/HCPCS: 99212 ==

== ENCOUNTER 2025-03-17 09:17 | Outpatient (AMB) | payer OTHER, SELFPAY ==
[2025-03-17 09:20] VITALS: BP 126/86; PULSE 94; RESP 16; O2SAT 96; BMI 35.9
--- NOTE | 2025-03-17 09:20 | A.OFFPC_ITS ---
Vital Signs 03/17/25 09:20 Height 5 ft 10 in Weight 250 lb 8 oz BMI 35.9 BP 126/86 Blood Pressure Location Rt brachial Position Sitting Respiration 16 Pulse 94 Pulse Source Pulse Oximeter Pulse Oximetry (%) 96 Oxygen Delivery Method Room Air Intake Visit Reasons: DM Intake Note: Diabetes follow up Emergency Management Program Specialist Required: No Allergies apples Allergy (Intermediate, Uncoded 03/17/25 09:22) Sore throat Tobacco use date assessed: 12/13/24 Dental Screening Dental Screen Date: 08/08/24 HPI HPI Comments History of Present Illness Details The patient is a 34 year old male with a past medical history of type 2 diabetes, ADHD presenting for follow up Type 2 diabetes: On trulicity 3mg weekly. Has been inconsistent with the medication. A1C 7.9 from 7.6% from 6.7%. Intolerant of metfromin in the past- heartburn. Some nocturia. Worried about prostate. Lab ordered today Patient is s/p vasectomy. Says he had bad experience with office, wait times etc. He would like new referral to get his post vasectomy testing. ADHD: On Focalin. Doing well on the medication. Previously on combination of XR and short acting adderall. Reports skin bumps elbows belly groing. Slight itchy rash in the ears and upper gluteal cleft Has chronic cyst left neck. not painful ROS see HPI PHYSICAL EXAM: GENERAL: Alert and oriented x 3. NAD EYES: EOMI. Anicteric. HENT: Moist mucous membranes. No scleral icterus. No cervical lymphadenopathy. LUNGS: Clear to auscultation bilaterally. CARDIOVASCULAR: Regular rate and rhythm. No murmur. No JVD. ABDOMEN: Soft, non-tender +bs EXTREMITIES: No edema. Non-tender. SKIN: Eczema ear, buttock. Pilaris abdomen arms NEUROLOGIC: No focal neurological deficits. CN II-XII grossly intact PSYCHIATRIC: Cooperative. Appropriate mood and affect [facility] Medical History ADHD Surgical History (Updated 03/17/25 @ 09:22 by Sarai Berger CMA) H/O vasectomy No pertinent past surgical history Family History Mother Depression Sister Diabetes Father Diabetes Other FH: mental illness Social History Household Members: Family Both parents involved: No Caregiver staying overnight: No Housing: House Are you a primary managed care coordinator to a significant other at home: No Do you presently have visiting nurse or other home services: No 75 years or older and lives alone: No Alcohol intake: current Alcohol intake frequency: holidays/special occasions only Patient Tobacco Use Status: Former Tobacco user (1-2 cigarettes every couple days) Tobacco use type: Cigarette Cigarettes Per Day: 1 Years Smoked: 2 e-Cigarette/Vaping Use: Never Used Second Hand Smoke Exposure: No service: No Current occupational status: employed Current occupation: Self Employed Current occupational exposures/hazards: No Cognitive needs: No Hearing needs: No Vision needs: Yes Questionnaire Thrive Questionnaire Date Thrive assessed: 04/08/24 I am a: Patient What is your living situation today?: I have a steady place to live Within the past 12 months, did the food you bought not last and you didn't have the money to get more?: I choose not to answer this question Within the past 12 months, did you worry whether your food would run out before you got money to buy more?: I choose not to answer this question Do you have trouble paying for medicines?: I choose not to answer this question Do you have trouble getting transportation to medical appointments?: I choose not to answer this question Do you have trouble paying your heating and electricity bill?: Yes Do you have trouble taking care of your child, family member or friend?: Yes Do you have trouble with day-to-day activities such as bathing, preparing meals, shopping, managing finances, etc.?: No Are you currently unemployed and looking for a job?: No Are you interested in more education?: Yes Currently or been in a relationship where the following occur: No concerns reported THRIVE Score: 1 AYUSH-7 AMB Questionnaire AYUSH-7 Date AYUSH - 7 assessed: 04/08/24 Source: Developed by Drs. Mayo Ivey, Mady Crook, Naun Salas and colleagues, with an educational dyana from [employer]. Physical exam (Primary Care) Vital Signs: Last Vital Signs Pulse 94 03/17/25 09:20 Resp 16 03/17/25 09:20 BP 126/86 03/17/25 09:20 Pulse Ox 96 03/17/25 09:20 Oxygen Delivery Method Room Air 03/17/25 09:20 BMI result Body Mass Index 35.9 Tobacco/Smoking Status: Tobacco use Status Tobacco use date assessed 12/13/24 03/17/25 09:23 Patient Tobacco Use Status Former Tobacco user (1-2 03/17/25 09:23 cigarettes every couple days ) Tobacco use type Cigarette 03/17/25 09:23 e-Cigarette/Vaping Use Never Used 03/17/25 09:23 Thrive Assessment: Date of Thrive Assessment Date Thrive assessed 04/08/24 03/17/25 09:23 Currently or been in a relationship where the following occur: No concerns reported Results AMB Hemoglobin A1c AMB Hemoglobin A1c 7.9 % Last Edit by Sarai Berger CMA on 03/17/25 09:34 Coding Level of Care Code Est Pt Level 4 (20926) Diagnoses Type 2 diabetes mellitus with hyperglycemia, without long-term current use of insulin E11.65 Diabetes mellitus type: type 2 Diabetes mellitus senior living insulin use: without senior living use Diabetes mellitus complication status: with hyperglycemia Hypercholesterolemia E78.00 Attention deficit hyperactivity disorder (ADHD), predominantly inattentive type F90.0 Attention deficit-hyperactivity disorder type: predominantly inattentive Assessment & Plan Assessment & Plan (1) Diabetes: Code(s): E11.9 - Type 2 diabetes mellitus without complications Category: Medical Qualifiers: Diabetes mellitus type: type 2 Diabetes mellitus superintendent container terminal insulin use: without senior living use Diabetes mellitus complication status: with hyperglycemia Qualified Code(s): E11.65 - Type 2 diabetes mellitus with hyperglycemia (2) Hypercholesterolemia: Code(s): E78.00 - Pure hypercholesterolemia, unspecified Category: Medical (3) ADHD: Code(s): F90.9 - Attention-deficit hyperactivity disorder, unspecified type Category: Medical Qualifiers: Attention deficit-hyperactivity disorder type: predominantly inattentive Qualified Code(s): F90.0 - Attention-deficit hyperactivity disorder, predominantly inattentive type Plan Diabetes-suboptimal control likely due to medication non adeherence. Discussed alarms etc. Switch to mounjaro if covered. Will add glipizide daily. ADD-stable on medications Referred to urology [facility] for post vasectomy testing Orders: Orders AMB Hemoglobin A1c Today E11.65 - Type 2 diabetes mellitus with hyperglycemia Prostate Specific Antigen Today R35.1 - Nocturia Referrals Urology Referral R35.1 - Nocturia Medications: New glipizide ER 5 mg PO DAILY 90 tabs 3RF Mounjaro (tirzepatide) 5 mg (0.5 mL) subcut QWEEK 2 mL 3RF NS E11.65 - Type 2 diabetes mellitus with hyperglycemia
== END 2025-03-17 09:49 | disposition home or self-care (01) ==
LOC: HO.HMCFM 09:17
PROVIDERS: PCP Internal Medicine; Visit Provider Internal Medicine
DX: E11.65 Type 2 diabetes mellitus with hyperglycemia (principal); E78.00 Pure hypercholesterolemia, unspecified; F90.0 Attention-deficit hyperactivity disorder, predominantly inattentive type

== ENCOUNTER 2025-03-17 09:17 | Outpatient (REF) | payer OTHER, SELFPAY | END 2025-03-17 09:18 | disposition home or self-care (01) | LOC: HO.WFDLDS 09:17 | PROVIDERS: PCP Internal Medicine; Visit Provider Internal Medicine | DX: E11.65 Type 2 diabetes mellitus with hyperglycemia (principal); E78.00 Pure hypercholesterolemia, unspecified; F90.0 Attention-deficit hyperactivity disorder, predominantly inattentive type | CPT/HCPCS: 83036; 99212 ==